=== PATIENT | male | born 1945 | race Caucasian/White ===

== ENCOUNTER 2016-10-29 05:39 | Observation (INO) | payer MEDICARE ==
[2016-10-29] MEDS ORDERED: Albuterol/Ipratropium NEB.SOL* Albuterol 2.5 MG/Ipratropium 0.5 MG 3 ML ONE (05:50)
[2016-10-29] MEDS ORDERED: Albuterol/Ipratropium NEB.SOL* Albuterol 2.5 MG/Ipratropium 0.5 MG 3 ML INH ONE (05:51)
[2016-10-29] MEDS ORDERED: methylPREDNISolone 125 MG* 2 ML VIAL IV ONE (06:01)
[2016-10-29 06:49] LABS: Hematocrit 51 % (42-52); Hemoglobin 17.1 g/dl (14.0-18.0); Mean Corpuscular HGB Conc 33 g/dl (31-36); Mean Corpuscular Hemoglobin 31 pg (27-31); Mean Corpuscular Volume 94 fL (80-94); Mean Platelet Volume 9 um3 (7.4-10.4); Red Blood Count 5.47 10^6/ul (4.0-5.4); Red Cell Distribution Width 17 % (10.5-15); White Blood Count 4.9 10^3/ul (3.5-10.8)
[2016-10-29 06:55] LABS: ALT 19 U/L (7-52); Albumin 3.8 g/dL (3.2-5.2); Alkaline Phosphatase 68 U/L (34-104); BUN/Creatinine Ratio 15.5 (8-20); Blood Urea Nitrogen 17 mg/dL (6-24); CO2 Carbon Dioxide 27 mmol/L (22-32); Calcium 9.5 mg/dL (8.6-10.3); Chloride 99 mmol/L (101-111); EGFR African American 85.1 (>60); EGFR Non-African American 66.2 (>60); Globulin 3.7 g/dL (2-4); Glucose 98 mg/dL (70-100); Sodium 132 mmol/L (133-145); Total Protein 7.5 g/dL (6.4-8.9)
--- NOTE | 2016-10-29 07:30 | ED ---
Sheri Malcolm Michael, scribed for Vince Campos MD on 10/29/16 at 0603 . Shortness of Breath - HPI Summary HPI Summary: 71 y/o male comes to the ED presenting with gradual SOB for the past 3 days. The pt reports that his SOB has worsened during the 3 days. He also smokes 2 packs of cigarettes per day and is not on home oxygen. The pt denies all other symptoms. - History of Current Complaint Chief Complaint: EDShortnessOfBreath Time Seen by Provider: 10/29/16 05:50 Hx Obtained From: Patient, Medical Records Onset/Duration: Gradual Onset, Lasting Days, Still Present Timing: Constant Current Severity: Moderate Dyspnea At: Rest Alleviating Factors: Nothing Associated Signs & Symptoms: Negative - Allergy/Home Medications Allergies/Adverse Reactions: Allergies Allergy/AdvReac Type Severity Reaction Status Date / Time Penicillins Allergy Severe Anaphylatic Verified 02/11/16 10:03 Shock Latex Allergy Intermediate Hives Verified 02/11/16 10:03 Wheat Extract Allergy Unknown Unknown Verified 02/11/16 10:03 Reaction Details PMH/Surg Hx/FS Hx/Imm Hx Endocrine/Hematology History: Reports: Hx Anticoagulant Therapy, Hx Diabetes - oral medication, diet Denies: Hx Blood Disorders, Hx Blood Transfusions, Hx Bone Marrow Disease, Hx Systemic Lupus Erythematosus, Hx Sickle Cell Disease, Hx Thyroid Disease, Hx Anemia, Hx Unexplained Bleeding, Other Endocrine/Hematological Disorders Cardiovascular History: Reports: Hx Angina - mi this year, Hx Angioplasty - stents in [place],, Hx Congestive Heart Failure, Hx Hypercholesterolemia, Hx Hypertension, Other Cardiovascular Problems/Disorders - SVT; Bypass x 2005 Denies: Hx Aneurysm, Hx Cardiac Arrest - positive for mi in past, Hx Cardiomegaly, Hx Congenital Heart Disease, Hx Coronary Artery Disease, Hx Deep Vein Thrombosis, Hx Embolism Respiratory History: Reports: Hx Asthma, Hx Chronic Obstructive Pulmonary Disease (COPD), Hx Sleep Apnea - HX CPAP/NO LONGER USES, Other Respiratory Problems/Disorders GI History: Reports: Hx Gastroesophageal Reflux Disease, Other GI Disorders - CONSTIPATION, PUD, gastric cristy/HERNIA ON RT SIDE Denies: Hx Ulcer History: Reports: Hx Benign Prostatic Hyperplasia, Other Problems/ Disorders - BPH Denies: Hx Renal Disease Musculoskeletal History: Reports: Other Musculoskeletal History - chain saw injury to right lower Sensory History: Reports: Hx Contacts or Glasses Denies: Hx Cataracts, Hx Eye Injury, Hx Eye Prosthesis, Hx Glaucoma, Hx Legally Blind, Hx Macular Degeneration, Hx Vision Problem, Hx Deafness, Hx Hearing Aid, Hx Hearing Problem, Other Sensory Impairments Opthamlomology History: Reports: Hx Contacts or Glasses Denies: Hx Cataracts, Hx Eye Injury, Hx Eye Prosthesis, Hx Glaucoma, Hx Legally Blind, Hx Macular Degeneration, Hx Vision Problem, Other Sensory Impairments Psychiatric History: Reports: Hx Depression - Surgical History Surgery Procedure, Year, and Place: CARDIAC STENTS, CABG 2004; Abdominal exploratory surgery at age 17; gastric cristy. grafting to right lower extremity after traumatic injury Hx Anesthesia Reactions: No Infectious Disease History: Denies: Hx Clostridium Difficile, Hx Hepatitis, Hx Human Immunodeficiency Virus (HIV), Hx of Known/Suspected MRSA, Hx Shingles, Hx Tuberculosis, Hx Known/ Suspected VRE, Hx Known/Suspected VRSA, History Other Infectious Disease, Traveled Outside the in Last 30 Days - Family History Known Family History: Positive: Cardiac Disease, Hypertension, Diabetes - Social History Occupation: Disabled Lives: With Family Alcohol Use: Rare Substance Use Type: Reports: None Smoking Status (MU): Light Every Day Tobacco Smoker Review of Systems Negative: Fever Positive: Shortness Of Breath All Other Systems Reviewed And Are Negative: Yes Physical Exam Triage Information Reviewed: Yes Vital Signs On Initial Exam: Initial Vitals Temp Pulse Resp BP Pulse Ox 97.9 F 64 16 156/80 96 10/29/16 05:46 10/29/16 05:46 10/29/16 05:46 10/29/16 05:46 10/29/16 05:46 Vital Signs Reviewed: Yes Appearance: Positive: Obese - modeate sob Skin: Positive: Warm Head/Face: Positive: Normal Head/Face Inspection Eyes: Positive: VAISHNAVI ENT: Positive: Hearing grossly normal Neck: Positive: Supple Respiratory/Lung Sounds: Positive: Decreased Breath Sounds, Wheezes - diffuse bilat exp Cardiovascular: Positive: RRR Abdomen Description: Positive: Nontender, Soft Bowel Sounds: Positive: Present Musculoskeletal: Positive: Strength/ROM Intact Neurological: Positive: Alert, Oriented to Person Place, Time, Normal Gait Psychiatric: Positive: Affect/Mood Appropriate Diagnostics - Vital Signs Vital Signs Temp Pulse Resp BP Pulse Ox 10/29/16 05:46 97.9 F 64 16 156/80 96 - Laboratory Lab Results: Lab Results 10/29/16 10/29/16 10/29/16 Range/Units 05:56 05:56 05:56 WBC 4.9 (3.5-10.8) 10^3/ul RBC 5.47 H (4.0-5.4) 10^6/ul Hgb 17.1 (14.0-18.0) g/dl Hct 51 (42-52) % MCV 94 (80-94) fL MCH 31 (27-31) pg MCHC 33 (31-36) g/dl RDW 17 H (10.5-15) % Plt Count 199 (150-450) 10^3/ul MPV 9 (7.4-10.4) um3 Neut % (Auto) 62.2 (38-83) % Lymph % (Auto) 22.1 L (25-47) % Lyman % (Auto) 11.9 H (1-9) % Eos % (Auto) 3.2 (0-6) % Baso % (Auto) 0.6 (0-2) % Absolute Neuts (auto) 3.1 (1.5-7.7) 10^3/ul Absolute Lymphs (auto) 1.1 (1.0-4.8) 10^3/ul Absolute Monos (auto) 0.6 (0-0.8) 10^3/ul Absolute Eos (auto) 0.2 (0-0.6) 10^3/ul Absolute Basos (auto) 0 (0-0.2) 10^3/ul Absolute Nucleated RBC 0 10^3/ul Nucleated RBC % 0.1 Sodium 132 L (133-145) mmol/L Potassium TNP Chloride 99 L (101-111) mmol/L Carbon Dioxide 27 (22-32) mmol/L Anion Gap TNP BUN 17 (6-24) mg/dL Creatinine 1.10 (0.67-1.17) mg/dL Est GFR ( Amer) 85.1 (>60) Est GFR (Non-Af Amer) 66.2 (>60) BUN/Creatinine Ratio 15.5 (8-20) Glucose 98 (70-100) mg/dL Lactic Acid 1.1 (0.5-2.0) mmol/L Calcium 9.5 (8.6-10.3) mg/dL Total Bilirubin 1.20 H (0.2-1.0) mg/dL AST TNP ALT 19 (7-52) U/L Alkaline Phosphatase 68 (34-104) U/L B-Natriuretic Peptide ( - 100) pg/mL Total Protein 7.5 (6.4-8.9) g/dL Albumin 3.8 (3.2-5.2) g/dL Globulin 3.7 (2-4) g/dL Albumin/Globulin Ratio 1.0 (1-3) 10/29/16 Range/Units 05:56 WBC (3.5-10.8) 10^3/ul RBC (4.0-5.4) 10^6/ul Hgb (14.0-18.0) g/dl Hct (42-52) % MCV (80-94) fL MCH (27-31) pg MCHC (31-36) g/dl RDW (10.5-15) % Plt Count (150-450) 10^3/ul MPV (7.4-10.4) um3 Neut % (Auto) (38-83) % Lymph % (Auto) (25-47) % Lyman % (Auto) (1-9) % Eos % (Auto) (0-6) % Baso % (Auto) (0-2) % Absolute Neuts (auto) (1.5-7.7) 10^3/ul Absolute Lymphs (auto) (1.0-4.8) 10^3/ul Absolute Monos (auto) (0-0.8) 10^3/ul Absolute Eos (auto) (0-0.6) 10^3/ul Absolute Basos (auto) (0-0.2) 10^3/ul Absolute Nucleated RBC 10^3/ul Nucleated RBC % Sodium (133-145) mmol/L Potassium Chloride (101-111) mmol/L Carbon Dioxide (22-32) mmol/L Anion Gap BUN (6-24) mg/dL Creatinine (0.67-1.17) mg/dL Est GFR ( Amer) (>60) Est GFR (Non-Af Amer) (>60) BUN/Creatinine Ratio (8-20) Glucose (70-100) mg/dL Lactic Acid (0.5-2.0) mmol/L Calcium (8.6-10.3) mg/dL Total Bilirubin (0.2-1.0) mg/dL AST ALT (7-52) U/L Alkaline Phosphatase (34-104) U/L B-Natriuretic Peptide 42 ( - 100) pg/mL Total Protein (6.4-8.9) g/dL Albumin (3.2-5.2) g/dL Globulin (2-4) g/dL Albumin/Globulin Ratio (1-3) Result Diagrams: 10/29/16 05:56 10/29/16 05:56 Lab Statement: Any lab studies that have been ordered have been reviewed, and results considered in the medical decision making process. - EKG EK EKG Rhythm: Sinus Rhythm Ectopy: PVCs EKG Interpretation: LBBB Re-Evaluation - Re-Evaluation First Eval Re-Evaluation Time: 07:29 - mildly improved but still sig sob, wheezes Course/Dx - Diagnoses Provider Diagnoses: COPD exacerbation - Physician Notifications Instructed by Provider To: Admit As Inpatient Discharge - Discharge Plan Condition: Fair Disposition: ADMITTED TO [facility] Referrals: Santy CORDERO SHIPPING CLERK/ADMIN,Elin [Primary Care Provider] - The documentation as recorded by the Sheri fernandes Michael accurately reflects the service I personally performed and the decisions made by , Vince Campos MD.
[2016-10-29] MEDS: Albuterol/Ipratropium NEB.SOL* Albuterol 2.5 MG/Ipratropium 0.5 MG 3 ML INH SCH ×6 (07:39→23:36)
[2016-10-29] MEDS ORDERED: Al Hydrox/Mg Hydrox/Simet LIQ* 30 ML UDC PO PRN (07:41)
[2016-10-29] MEDS ORDERED: Morphine INJ* 2 MG/ML 1 ML SYRINGE IV PRN (07:41)
[2016-10-29] MEDS ORDERED: Acetaminophen TAB* 325 MG PO PRN (07:41)
--- NOTE | 2016-10-29 07:42 | RAD ---
HISTORY: Shortness of breath COMPARISONS: April 20, 2016 VIEWS: 2: Frontal dual-energy and lateral views of the chest. FINDINGS: CARDIOMEDIASTINAL SILHOUETTE: The cardiomediastinal silhouette is normal. CASSIE: The cassie are normal. PLEURA: The costophrenic angles are sharp. No pleural abnormalities are noted. LUNG PARENCHYMA: There is hyperinflation with flattening of the diaphragm and expansion of the AP diameter of the chest. ABDOMEN: The upper abdomen is clear. There is no subphrenic gas. BONES AND SOFT TISSUES: Degenerative changes are noted along the spine. The patient is status post median sternotomy OTHER: None. IMPRESSION: HYPERINFLATION, CONSISTENT WITH COPD. NO ACTIVE CARDIOPULMONARY DISEASE.
[2016-10-29] MEDS ORDERED: NS 0.9% 1000 ML* 1,000 ML IV SCH (07:45)
[2016-10-29] MEDS ORDERED: Levothyroxine TAB* 25 MCG TAB PO SCH (08:00)
[2016-10-29 08:05] LABS: Troponin I 0.03 ng/mL (<0.04)
[2016-10-29] MEDS ORDERED: Dextrose 50% Syringe 50 ML* 25 GM/50 ML SYRINGE IV PUSH PRN (08:39)
[2016-10-29] MEDS: methylPREDNISolone 125 MG* 2 ML VIAL IV SCH ×2 (08:55→20:37)
[2016-10-29] MEDS ORDERED: Fluticasone-Salmeterol 250-50* DISKUS INH SCH (09:00)
[2016-10-29] MEDS ORDERED: Clopidogrel TAB* 75 MG PO SCH (09:00)
[2016-10-29] MEDS ORDERED: Metoprolol Succinate XL TAB* 25 MG PO SCH (09:00)
[2016-10-29] MEDS ORDERED: Furosemide TAB* 40 MG PO SCH (09:00)
[2016-10-29] MEDS: Azithromycin IV(*) 500 MG in NS 0.9% 250 ML* 250 ML IVPB SCH (10:15)
[2016-10-29] MEDS: Docusate CAP* 100 MG PO SCH ×2 (10:29→20:37)
[2016-10-29] MEDS: Aspirin EC TAB* 325 MG PO SCH (10:29)
[2016-10-29] MEDS: Furosemide TAB* 40 MG PO SCH (10:30)
--- NOTE | 2016-10-29 12:38 | HP ---
CC: WARD Tim HISTORY AND PHYSICAL: DATE OF ADMISSION: 10/29/16 PRIMARY CARE PROVIDER: WARD Machado CHIEF COMPLAINT: Shortness of breath. HISTORY OF PRESENT ILLNESS: The patient is a 71-year-old morbidly obese male with history of COPD, currently smoking 2 packs per day, who presents to the hospital complaining of shortness of breath for 2 days. The patient stated that he also has sinus congestion, pain in the paranasal area, and daily fevers. He is not oxygen- dependent COPD. He presented to the hospital and he was hypoxemic and in respiratory distress. He received several nebulizer treatments and right now, his oxygen saturation is 97% on 2 L of oxygen via nasal cannula. In addition to the above mentioned, the patient stated that he had been having chest pain and it is a pleuritic chest pain in the left lower chest on deeper inspiration and on cough. His cough has been productive of greenish sputum. The patient is going to be admitted with a diagnosis of COPD exacerbation. PAST MEDICAL HISTORY: 1. History of coronary artery disease. Most recent cardiac catheterization in March 2013, the patient had stent placed at [facility]. 2. Dyslipidemia. 3. Morbid obesity. 4. Diabetes. 5. Gastroesophageal reflux disease. 6. Hypothyroidism. 7. Non-oxygen dependent COPD. 8. History of gastric stapling for peptic ulcer disease. 9. Ventral hernia repair requiring mesh placement in the past with poor wound healing in the past. MEDICATIONS: At home include: 1. Imdur ER 30 mg daily. 2. Aspirin 325 mg daily. 3. Aldactone 25 mg daily. 4. Gabapentin 600 mg 3 times a day. 5. Levothyroxine 88 mcg daily. 6. Furosemide 80 mg daily. 7. Vitamin D2 weekly. 8. Lisinopril 2.5 mg daily. 9. Ferrous sulfate 325 mg 3 times a day. 10. Tradjenta 5 mg daily. 11. Atorvastatin 40 mg daily. 12. Ranitidine 150 mg daily. 13. Singulair 10 mg daily. 14. Metoprolol succinate 50 mg daily. 15. Opana 40 mg one tablet b.i.d. FAMILY HISTORY: Positive for father with history of [place] who committed suicide at the age of 76. Mother with history of dementia. SOCIAL HISTORY: The patient is on disability. He has history of smoking 2 to 3 packs per day for most of his life and he began when he was a teenager. Currently he smokes 2 packs per day. He denies any alcohol or drug use. His surrogate decision maker is his girlfriend, Maria Elena. REVIEW OF SYSTEMS: Please see history of present illness. The patient stated that his legs are usually swollen and they are more swollen when he is ambulatory for a longer time. They get better in the morning when he is just out of bed. Today, the patient states that his legs actually look "pretty good. " He has chronic orthopnea and he cannot sleep without having several pillows underneath his back. He stated that in the past couple of days, he needed more pillows underneath. He is not aware of any weight gain or loss. The patient states that his regular weight usually is 318 pounds. All the remaining 14 systems were reviewed with the patient and were otherwise negative. PHYSICAL EXAMINATION GENERAL: This is a very pleasant 71-year-old male morbidly obese. The patient is in no acute distress. Awake and oriented x3. VITAL SIGNS: Blood pressure of 178/87, heart rate of 67 and regular, respiratory rate 19, oxygen saturation 97% on 2 L oxygen via nasal cannula, temperature 97.9. HEENT: Head is atraumatic, normocephalic. Eyes: Pupils equal and reactive to light and accommodation. Oropharynx clear. Mucosa moist. NECK: Supple. No JVD. No bruits bilaterally. RESPIRATORY: Distant breath sounds bilaterally with wheezes in bilateral mid lungs. CARDIOVASCULAR: Regular rate and rhythm with 2/6 systolic ejection murmur noted on auscultation of the apex. ABDOMEN: Very protuberant, soft, nontender. Bowel sounds present in all 4 quadrants. The patient has a ventral hernia on the right side of his umbilicus with large area of chronic keloid-appearing scar. The area is not tender to palpation. EXTREMITIES: There is +1 pitting pedal edema. Pulses +2 bilaterally. There is no clubbing or cyanosis. NEUROLOGIC: Speech clear. Cranial nerves II through XII grossly intact. Motor strength is 5/5 bilaterally. SKIN: On evaluation of the skin, apart from the scar on the patient's abdomen as above mentioned, no ecchymotic areas or rashes noted. LABORATORY DATA: Sodium of 132, potassium was not able to be detected in the sample due to hemolysis, chloride of 99, carbon dioxide 27, BUN 17, creatinine 1.1. Liver function tests are unremarkable apart from mild elevation of bilirubin 1.2. Brain natriuretic peptide was 42. Troponin was 0.03. White blood cell count of 4.9, hemoglobin 17.1, hematocrit of 51, and platelets of 199. Portable chest x-ray, impression: "Hyperinflation consistent with COPD. No active cardiopulmonary disease." The patient's EKG shows left bundle branch block with heart rate of 67 beats per minute and PVCs. From prior EKGs from 2014, at that point, the patient had right bundle branch block with intraventricular conduction delay and LVH . ASSESSMENT AND PLAN: 1. For the patient's chronic obstructive pulmonary disease exacerbation, the patient is going to be placed on azithromycin and nebulizer treatments which are going to be scheduled, as well as Solu-Medrol. It appears that the patient does not have any inhalers at home, but in the past he had used them. Once he is off of his scheduled nebulizer treatments, we will place him on Advair or Dulera. At this point, I do not believe that the congestive heart failure is playing a role. I think that the patient is morbidly obese and due to that, he may have obesity hypoventilation problem and that is why he needs to sleep propped. His BNP is low. He does not appeared to be congested on his respiratory and lung evaluation. 2. In regards to his history of coronary artery disease, his troponin has been negative. His pain is occasional and pleuritic, most likely related to recent cough and respiratory distress. Nevertheless, we will observe him on telemetry monitored bed. 3. In regards to the patient's diabetes, the patient is going to be continued on diabetic diet and insulin sliding scale. His Tradjenta is going to be held while in the hospital. 4. For hypertension. The patient is going to be continued on his metoprolol. 5. For hypothyroidism, levothyroxine is going to be continued. 6. For chronic pain, Opana as well as gabapentin is going to be continued. 7. Once again, for his history of coronary artery disease, Imdur, aspirin, as well as beta blockers are going to be continued. 8. The patient's code status was discussed with the patient and the patient's girlfriend, Maria Elena. They agree with a full code. TIME SPENT: Approximately 63 minutes was spent on admission of this patient, more than half that time was spent [id number] with the patient during the interview and physical exam. [id number]/[facility] #: [id number] JAN
[2016-10-29] MEDS: Gabapentin CAP(*) 300 MG PO SCH ×2 (13:02→20:36)
[2016-10-29] MEDS: Levothyroxine TAB* 88 MCG TAB PO SCH (13:03)
[2016-10-29] MEDS: Ferrous Sulfate TAB* 325 MG PO SCH ×2 (13:03→20:37)
[2016-10-29] MEDS: Insulin LISPRO* 1 UNITS UNIT SUBCUT SCH ×3 (13:03→20:40)
[2016-10-29] MEDS: Heparin VIAL(*) 5000 UNITS/ML VIAL (FIVE THOUSAND) SUBCUT SCH ×2 (13:04→20:42)
[2016-10-29] MEDS ORDERED: Calcium Carbonate CHEW TAB* 500 MG (TUMS) PO PRN (13:11)
[2016-10-29] MEDS: Simethicone CHEW TAB* 80 MG PO SCH (15:08)
[2016-10-29] MEDS: Metoprolol Tartrate TAB* 50 mg PO SCH (20:37)
[2016-10-29] MEDS: OXYMORPHONE 10 MG PO SCH (20:43)
[2016-10-29] MEDS ORDERED: Atorvastatin* 40 MG TAB PO SCH (21:00)
[2016-10-30] MEDS: Albuterol/Ipratropium NEB.SOL* Albuterol 2.5 MG/Ipratropium 0.5 MG 3 ML INH SCH ×3 (04:41→12:20)
[2016-10-30] MEDS: Heparin VIAL(*) 5000 UNITS/ML VIAL (FIVE THOUSAND) SUBCUT SCH (05:50)
[2016-10-30] MEDS: Levothyroxine TAB* 88 MCG TAB PO SCH (05:51)
[2016-10-30 06:57] LABS: Hematocrit 47 % (42-52); Hemoglobin 15.4 g/dl (14.0-18.0); Mean Corpuscular HGB Conc 33 g/dl (31-36); Mean Corpuscular Hemoglobin 31 pg (27-31); Mean Corpuscular Volume 95 fL (80-94); Mean Platelet Volume 9 um3 (7.4-10.4); Red Blood Count 4.97 10^6/ul (4.0-5.4); Red Cell Distribution Width 16 % (10.5-15)
[2016-10-30 07:19] LABS: BUN/Creatinine Ratio 14.4 (8-20); Calcium 9.4 mg/dL (8.6-10.3); EGFR African American 84.2 (>60); EGFR Non-African American 65.5 (>60); Potassium 4.5 mmol/L (3.5-5.0)
[2016-10-30] MEDS: Aspirin EC TAB* 325 MG PO SCH (07:24)
[2016-10-30] MEDS ORDERED: Metoprolol Tartrate TAB* 50 mg PO SCH (07:24)
[2016-10-30] MEDS: Docusate CAP* 100 MG PO SCH (07:25)
[2016-10-30] MEDS: Metoprolol Tartrate TAB* 50 mg PO SCH (07:25)
[2016-10-30] MEDS: Furosemide TAB* 40 MG PO SCH (07:25)
[2016-10-30] MEDS: Simethicone CHEW TAB* 80 MG PO SCH ×2 (07:25→11:34)
[2016-10-30] MEDS: Gabapentin CAP(*) 300 MG PO SCH (07:26)
[2016-10-30] MEDS: Ferrous Sulfate TAB* 325 MG PO SCH (07:26)
[2016-10-30] MEDS: methylPREDNISolone 125 MG* 2 ML VIAL IV SCH (07:27)
[2016-10-30] MEDS: Azithromycin IV(*) 500 MG in NS 0.9% 250 ML* 250 ML IVPB SCH (07:28)
[2016-10-30] MEDS: OXYMORPHONE 10 MG PO SCH (07:34)
[2016-10-30] MEDS: Insulin LISPRO* 1 UNITS UNIT SUBCUT SCH ×2 (07:44→11:32)
[2016-10-30] MEDS ORDERED: Spironolactone TAB* 25 MG PO SCH ×2 (09:00)
[2016-10-30] MEDS ORDERED: Lisinopril TAB* 5 MG PO SCH ×2 (09:00)
[2016-10-30] MEDS ORDERED: Isosorbide Mononitrate ER TAB* 30 MG PO SCH ×2 (09:00)
[2016-10-30 09:08] VITALS: BP 113/64
--- NOTE | 2016-10-30 23:21 | DS ---
DISCHARGE SUMMARY: DATE OF ADMISSION: 10/29/16 DATE OF DISCHARGE: 10/30/16 PRIMARY CARE PROVIDER: WARD Tim DISCHARGE DIAGNOSES: 1. Acute maxillary sinusitis. 2. Chronic obstructive pulmonary disease exacerbation. SECONDARY DIAGNOSES: 1. History of coronary artery disease, cardiac catheterization in March 2013 with stent placement at [facility]. 2. Dyslipidemia. 3. Morbid obesity. 4. Diabetes. 5. Gastroesophageal reflux disease. 6. Hypothyroidism. 7. Non-oxygen dependent chronic obstructive pulmonary disease. 8. History of gastric stapling for peptic ulcer disease. 9. Ventral hernia repair requiring mesh placement in the past with poor wound healing in the past. MEDICATIONS AT DISCHARGE: Include: 1. Imdur ER 30 mg daily. 2. Aspirin 325 mg daily. 3. Aldactone 25 mg daily. 4. Gabapentin 600 mg 3 times a day. 5. Levothyroxine 88 mcg daily. 6. Furosemide 80 mg daily. 7. Vitamin D weekly. 8. Lisinopril 2.5 mg daily. 9. Ferrous sulfate 325 mg 3 times a day. 10. Tradjenta 5 mg daily. 11. Atorvastatin 40 mg daily. 12. Ranitidine 150 mg daily. 13. Singulair 10 mg daily. 14. Metoprolol succinate 50 mg daily. 15. Opana 40 mg 1 tablet b.i.d. New includes: Prednisone taper 20 mg tablet, the patient is to take 3 tablets daily for 2 days, then 2 tablets daily for 2 days, and 1 tablet daily for 2 days , then half a tablet daily for 2 days, then stop. Azithromycin 250 mg daily for a total of 4 days. HOSPITALIZATION COURSE: Pawel Craig is a 71-year-old male with history of obesity, smoking 2 packs per day currently as well as COPD, who presented complaining of shortness of breath, fevers for a couple of days, and sinus and nose congestion. The patient was placed on overnight observation with diagnosis of COPD exacerbation. For his sinusitis, he was treated with azithromycin. After 24-hour observation, the patient feels back to normal and he is ready to be discharged. His sinus congestion is improving. He was recommended not to smoke at discharge and he agrees with the recommendation. The patient recommended also to follow up with his primary care provider in approximately 4 to 7 days. LABORATORY DATA AND STUDIES PERFORMED DURING THE HOSPITAL STAY: Included, on , white blood cell count of 15.0, hemoglobin 15.4, hematocrit of 47, platelets of 162. Sodium was 135, potassium 4.5, chloride 103, carbon dioxide 25, BUN 16, creatinine 1.11. Portable chest x-ray obtained on admission, impression: "Hyperinflation appeared consistent with COPD. No active cardiopulmonary disease." PHYSICAL EXAMINATION: At the time of discharge, blood pressure of 113/64, heart rate of 60 and regular, respiratory rate 18, oxygen saturation 95% on room air, temperature 97.3. General: The patient is a very pleasant 71-year- old obese male, who is in no acute distress, alert and oriented x3. HEENT: Head atraumatic, normocephalic. Eyes: Pupils equal and reactive to light and accommodation. Pharynx clear. Mucosa moist. Neck: Supple. No JVD. No bruits bilaterally. Cardiovascular: Regular rate and rhythm. No murmur. Respiratory: Distant breath sounds bilaterally. No wheezes. Abdomen: Protuberant, obese, soft, nontender. Bowel sounds present in all 4 quadrants. Large scar on the right side of the umbilicus, after ventral hernia repair, is present. Extremities: There is trace bilateral pedal edema. Pulses are 2+ bilaterally. There is no clubbing or cyanosis. Neuro Evaluation: Speech is clear. Cranial nerves II through XII are grossly intact. Motor strength is 5/ 5 bilaterally. Please note that this is a short summary of the patient's hospital stay. Please refer to further medical records for details. CC: WARD Tim* [id number]/DEV #: [id number] [facility] MEM[facility]IAL HOSPITALJuma
== END 2016-10-30 12:40 | disposition home or self-care (01) ==
LOC: ED 05:39 → MEDTELE 07:41
PROVIDERS: ADMIT Internal Medicine; ATTEND Internal Medicine
DX: J44.1 Chronic obstructive pulmonary disease with (acute) exacerbation (principal); F17.210 Nicotine dependence, cigarettes, uncomplicated; E11.8 Type 2 diabetes mellitus with unspecified complications; Z79.84 Long term (current) use of oral hypoglycemic drugs; I25.2 Old myocardial infarction; I25.119 Atherosclerotic heart disease of native coronary artery with unspecified angina pectoris; Z95.5 Presence of coronary angioplasty implant and graft; Z95.1 Presence of aortocoronary bypass graft; I45.2 Bifascicular block; I49.3 Ventricular premature depolarization; I10 Essential (primary) hypertension; E03.9 Hypothyroidism, unspecified; E78.5 Hyperlipidemia, unspecified; K21.9 Gastro-esophageal reflux disease without esophagitis; E66.01 Morbid (severe) obesity due to excess calories; G89.29 Other chronic pain; Z79.899 Other long term (current) drug therapy; J01.00 Acute maxillary sinusitis, unspecified; Z88.0 Allergy status to penicillin
CPT/HCPCS: 36415; 71020; 80048; 80053; 83605; 83880; 84484; 85025; 93005; 94640; 94760; 96365; 96366; 96372; 96375; 96376; 99283; 99406; A9270-GY; G0378; J0456; J1644; J2270; J2930

== ENCOUNTER 2017-01-28 12:03 | Observation (INO) | payer MEDICARE ==
[2017-01-28] MEDS ORDERED: Aspirin Low Dose CHEW TAB* 81 MG PO ONE (12:24)
[2017-01-28] MEDS ORDERED: Albuterol/Ipratropium NEB.SOL* Albuterol 2.5 MG/Ipratropium 0.5 MG 3 ML INH ONE (12:25)
[2017-01-28] MEDS ORDERED: methylPREDNISolone 125 MG* 2 ML VIAL IV ONE (12:28)
[2017-01-28 12:47] LABS: Hematocrit 54 % (42-52); Hemoglobin 17.6 g/dl (14.0-18.0); Mean Corpuscular HGB Conc 33 g/dl (31-36); Mean Corpuscular Hemoglobin 32 pg (27-31); Mean Corpuscular Volume 99 fL (80-94); Mean Platelet Volume 9 um3 (7.4-10.4); Red Blood Count 5.48 10^6/ul (4.0-5.4); Red Cell Distribution Width 15 % (10.5-15); White Blood Count 6.4 10^3/ul (3.5-10.8)
[2017-01-28 13:03] LABS: Troponin I 0.01 ng/mL (<0.04)
[2017-01-28 13:07] LABS: Albumin 3.7 g/dL (3.2-5.2); BUN/Creatinine Ratio 11.7 (8-20); Calcium 9.1 mg/dL (8.6-10.3); EGFR African American 66.1 (>60); EGFR Non-African American 51.4 (>60); Globulin 2.7 g/dL (2-4); Potassium 4.2 mmol/L (3.5-5.0); Total Protein 6.4 g/dL (6.4-8.9)
--- NOTE | 2017-01-28 13:11 | RAD ---
INDICATION: Short of breath COMPARISON: October 29, 2016 TECHNIQUE: An AP portable view obtained at 1247 hours is submitted. FINDINGS: Bones/Soft Tissues: There are no acute bony findings. There is sternotomy. Cardiomediastinal: The cardiomediastinal silhouette is normal. Lungs: There are no infiltrates. Pleura: There are no pleural effusions. Other: None IMPRESSION: NO ACTIVE DISEASE.
--- NOTE | 2017-01-28 14:00 | ED ---
Rivera Malcolm Rebecca, scribed for Ina Shah MD on 01/28/17 at 1244 . HPI Chest Pain - HPI Summary HPI Summary: Pt is a 71 y/o M who presents to ED c/o left anterior CP without radiation. Sx began this morning at 0800 and are currently severe, ranked 8/10. Took 1 NTG TALLOW PUMPER , unsure if it helped. Sx aggravated and alleviated by nothing. Additionally c/ o SOB, cough, fever and fatigue. Pt was D/C from [facility] in October for COPD exacerbation. PMHx CHF, COPD. Last used his inhaler a few days ago. SHx current smoker. - History of Current Complaint Chief Complaint: EDChestPainROMI Hx Obtained From: Patient Onset/Duration: Started Hours Ago, Still Present Time of Onset: 08:00 Current Severity: Severe Pain Intensity: 8 Pain Scale Used: 0-10 Numeric Chest Pain Location: Left Anterior Chest Pain Radiates: No Aggravating Factor(s): Nothing Alleviating Factor(s): Nothing Associated Signs and Symptoms: Positive: Shortness of Breath, Fever, Cough, Other: - Fatigue - Additional Pertinent History Primary Care Physician: EDUARDO - Allergy/Home Medications Allergies/Adverse Reactions: Allergies Allergy/AdvReac Type Severity Reaction Status Date / Time Penicillins Allergy Severe Anaphylatic Verified 10/29/16 07:39 Shock Latex Allergy Intermediate Hives Verified 10/29/16 07:39 Wheat Extract Allergy Unknown Unknown Verified 10/29/16 07:39 Reaction Details Home Medications: Home Medications Aspirin TAB* [Aspirin 325 MG TAB*] 325 mg PO DAILY 01/28/17 [History Confirmed 01/28/17] Docusate CAP* [Colace Cap*] 100 mg PO BID 01/28/17 [History Confirmed 01/28/17] Ergocalciferol CAP* [Drisdol CAP*] 50,000 units PO WEEKLY 01/28/17 [History Confirmed 01/28/17] Isosorbide Mononitrate ER TAB* [Imdur ER TAB*] 30 mg PO DAILY 01/28/17 [History Confirmed 01/28/17] Levothyroxine TAB* [Synthroid TAB*] 88 mcg PO DAILY 01/28/17 [History Confirmed 01/28/17] Linagliptin (NF) [Tradjenta (NF)] 5 mg PO DAILY 01/28/17 [History Confirmed 05/06] Metoprolol Succinate XL TAB* [Toprol XL TAB*] 50 mg PO BID 01/28/17 [History Confirmed 01/28/17] Oxymorphone HCl [Opana ER (Crush Resistant] 40 mg PO BID 01/28/17 [History Confirmed 01/28/17] Spironolactone TAB* [Aldactone TAB*] 25 mg PO DAILY 01/28/17 [History Confirmed 01/28/17] PMH/Surg Hx/FS Hx/Imm Hx Endocrine/Hematology History: Reports: Hx Anticoagulant Therapy, Hx Diabetes - oral medication, diet Denies: Hx Blood Disorders, Hx Blood Transfusions, Hx Bone Marrow Disease, Hx Systemic Lupus Erythematosus, Hx Sickle Cell Disease, Hx Thyroid Disease, Hx Anemia, Hx Unexplained Bleeding, Other Endocrine/Hematological Disorders Cardiovascular History: Reports: Hx Angina - mi this year, Hx Angioplasty - stents in [place],, Hx Congestive Heart Failure, Hx Hypercholesterolemia, Hx Hypertension, Other Cardiovascular Problems/Disorders - SVT; Bypass x 4 2005 Denies: Hx Aneurysm, Hx Cardiac Arrest - positive for mi in past, Hx Cardiomegaly, Hx Congenital Heart Disease, Hx Coronary Artery Disease, Hx Deep Vein Thrombosis, Hx Embolism Respiratory History: Reports: Hx Asthma, Hx Chronic Obstructive Pulmonary Disease (COPD), Hx Sleep Apnea - HX CPAP/NO LONGER USES, Other Respiratory Problems/Disorders GI History: Reports: Hx Gastroesophageal Reflux Disease, Other GI Disorders - CONSTIPATION, PUD, gastric cristy/HERNIA ON RT SIDE Denies: Hx Ulcer History: Reports: Hx Benign Prostatic Hyperplasia, Other Problems/ Disorders - BPH Denies: Hx Renal Disease Musculoskeletal History: Reports: Other Musculoskeletal History - chain saw injury to right lower Sensory History: Reports: Hx Contacts or Glasses Denies: Hx Cataracts, Hx Eye Injury, Hx Eye Prosthesis, Hx Glaucoma, Hx Legally Blind, Hx Macular Degeneration, Hx Vision Problem, Hx Deafness, Hx Hearing Aid, Hx Hearing Problem, Other Sensory Impairments Opthamlomology History: Reports: Hx Contacts or Glasses Denies: Hx Cataracts, Hx Eye Injury, Hx Eye Prosthesis, Hx Glaucoma, Hx Legally Blind, Hx Macular Degeneration, Hx Vision Problem, Other Sensory Impairments Psychiatric History: Reports: Hx Depression - Surgical History Surgery Procedure, Year, and Place: CARDIAC STENTS, CABG 2004; Abdominal exploratory surgery at age 17; gastric cristy. grafting to right lower extremity after traumatic injury Hx Anesthesia Reactions: No Infectious Disease History: Yes Infectious Disease History: Denies: Hx Clostridium Difficile, Hx Hepatitis, Hx Human Immunodeficiency Virus (HIV), Hx of Known/Suspected MRSA, Hx Shingles, Hx Tuberculosis, Hx Known/ Suspected VRE, Hx Known/Suspected VRSA, History Other Infectious Disease, Traveled Outside the [place] in Last 30 Days - Family History Known Family History: Positive: Cardiac Disease, Hypertension, Diabetes - Social History Alcohol Use: Rare Substance Use Type: Reports: None Hx Tobacco Use: Yes Smoking Status (MU): Heavy Every Day Tobacco Smoker Type: Cigarettes Review of Systems Positive: Fever, Fatigue Positive: Chest Pain Positive: Shortness Of Breath, Cough All Other Systems Reviewed And Are Negative: Yes Physical Exam - Summary Physical Exam Summary: General: Well appearing, no pain distress, falling asleep during exam Skin: Warm, Skin Color Reflects Adequate Perfusion, Dry Eyes: EOMI, VAISHNAVI ENT: Pharynx normal, TMs normal Neck: Supple, nontender Respiratory: CTA, decreased breath sounds bilaterally, no rhonchi, no wheezes, no rales Cardiovascular: RRR, no murmur, no rub, no gallop Abdomen: Soft, nontender, Non-distended, no guarding, no rebound Bowel: Present Musculoskeletal: CHU, 2+ edema with some brawny erythema on the R leg with a scar over it. Neuro: Sensory/motor intact, A&Ox3, CN intact 2-12 Psych: Affect/mood appropriate Triage Information Reviewed: Yes Vital Signs On Initial Exam: Initial Vitals Temp Pulse Resp BP Pulse Ox 98 F 70 20 111/72 94 01/28/17 12:14 01/28/17 12:14 01/28/17 12:14 01/28/17 12:14 01/28/17 12:14 Vital Signs Reviewed: Yes - Bowen Coma Scale Coma Scale Total: 15 Diagnostics - Vital Signs Vital Signs Temp Pulse Resp BP Pulse Ox 01/28/17 12:36 94 01/28/17 12:14 98 F 68 20 111/72 94 - Laboratory Lab Results: Lab Results 01/28/17 01/28/17 01/28/17 Range/Units 12:32 12:32 12:32 WBC 6.4 (3.5-10.8) 10^3/ul RBC 5.48 H (4.0-5.4) 10^6/ul Hgb 17.6 (14.0-18.0) g/dl Hct 54 H (42-52) % MCV 99 H (80-94) fL MCH 32 H (27-31) pg MCHC 33 (31-36) g/dl RDW 15 (10.5-15) % Plt Count 163 (150-450) 10^3/ul MPV 9 (7.4-10.4) um3 Neut % (Auto) 73.9 (38-83) % Lymph % (Auto) 13.9 L (25-47) % [place] % (Auto) 8.1 (1-9) % Eos % (Auto) 3.5 (0-6) % Baso % (Auto) 0.6 (0-2) % Absolute Neuts (auto) 4.7 (1.5-7.7) 10^3/ul Absolute Lymphs (auto) 0.9 L (1.0-4.8) 10^3/ul Absolute Monos (auto) 0.5 (0-0.8) 10^3/ul Absolute Eos (auto) 0.2 (0-0.6) 10^3/ul Absolute Basos (auto) 0 (0-0.2) 10^3/ul Absolute Nucleated RBC 0.01 10^3/ul Nucleated RBC % 0.1 INR (Anticoag Therapy) 0.87 L (0.89-1.11) Sodium 134 (133-145) mmol/L Potassium 4.2 (3.5-5.0) mmol/L Chloride 98 L (101-111) mmol/L Carbon Dioxide 32 (22-32) mmol/L Anion Gap 4 (2-11) mmol/L BUN 16 (6-24) mg/dL Creatinine 1.37 H (0.67-1.17) mg/dL Est GFR ( Amer) 66.1 (>60) Est GFR (Non-Af Amer) 51.4 (>60) BUN/Creatinine Ratio 11.7 (8-20) Glucose 105 H (70-100) mg/dL Lactic Acid (0.5-2.0) mmol/L Calcium 9.1 (8.6-10.3) mg/dL Total Bilirubin 1.00 (0.2-1.0) mg/dL AST 19 (13-39) U/L ALT 24 (7-52) U/L Alkaline Phosphatase 77 (34-104) U/L Troponin I 0.01 (<0.04) ng/mL B-Natriuretic Peptide ( - 100) pg/mL Total Protein 6.4 (6.4-8.9) g/dL Albumin 3.7 (3.2-5.2) g/dL Globulin 2.7 (2-4) g/dL Albumin/Globulin Ratio 1.4 (1-3) 01/28/17 01/28/17 Range/Units 12:32 12:32 WBC (3.5-10.8) 10^3/ul RBC (4.0-5.4) 10^6/ul Hgb (14.0-18.0) g/dl Hct (42-52) % MCV (80-94) fL MCH (27-31) pg MCHC (31-36) g/dl RDW (10.5-15) % Plt Count (150-450) 10^3/ul MPV (7.4-10.4) um3 Neut % (Auto) (38-83) % Lymph % (Auto) (25-47) % [place] % (Auto) (1-9) % Eos % (Auto) (0-6) % Baso % (Auto) (0-2) % Absolute Neuts (auto) (1.5-7.7) 10^3/ul Absolute Lymphs (auto) (1.0-4.8) 10^3/ul Absolute Monos (auto) (0-0.8) 10^3/ul Absolute Eos (auto) (0-0.6) 10^3/ul Absolute Basos (auto) (0-0.2) 10^3/ul Absolute Nucleated RBC 10^3/ul Nucleated RBC % INR (Anticoag Therapy) (0.89-1.11) Sodium (133-145) mmol/L Potassium (3.5-5.0) mmol/L Chloride (101-111) mmol/L Carbon Dioxide (22-32) mmol/L Anion Gap (2-11) mmol/L BUN (6-24) mg/dL Creatinine (0.67-1.17) mg/dL Est GFR ( Amer) (>60) Est GFR (Non-Af Amer) (>60) BUN/Creatinine Ratio (8-20) Glucose (70-100) mg/dL Lactic Acid 1.4 (0.5-2.0) mmol/L Calcium (8.6-10.3) mg/dL Total Bilirubin (0.2-1.0) mg/dL AST (13-39) U/L ALT (7-52) U/L Alkaline Phosphatase (34-104) U/L Troponin I (<0.04) ng/mL B-Natriuretic Peptide 47 ( - 100) pg/mL Total Protein (6.4-8.9) g/dL Albumin (3.2-5.2) g/dL Globulin (2-4) g/dL Albumin/Globulin Ratio (1-3) Result Diagrams: 01/28/17 12:32 01/28/17 12:32 Lab Statement: Any lab studies that have been ordered have been reviewed, and results considered in the medical decision making process. - Radiology CXR Xray Interpretation: No Acute Changes - NO ACTIVE DISEASE. Radiology Interpretation Completed By: Radiologist - EKG 1213 Cardiac Rate: NL - 66 bpm EKG Interpretation: LBBB EKG Comparison: No Significant Change - No change from EKG on 10/29/2016 Chest Pain Course/Dx - Course Course Of Treatment: 71 yo male with c/o cp and sob with normal labs copd treatment started pt accepted for admission by Dr. Santana - Diagnoses Provider Diagnoses: COPD exacerbation, Chest pain - Provider Notifications Discussed Care Of Patient With: Mark Santana Time Discussed With Above Provider: 13:50 Instructed by Provider To: Other - Accepts pt for admission Discharge - Discharge Plan Condition: Stable Disposition: ADMITTED TO [facility] Referrals: Santy CORDERO PHYSICIAN NON INVASIVE CARDIOLOGIST,Elin [Primary Care Provider] - The documentation as recorded by the Rivera fernandes Rebecca accurately reflects the service I personally performed and the decisions made by me, Ina Shah MD.
[2017-01-28 14:08] LABS: PCO2 Arterial 43 mmHg (35-45)
[2017-01-28] MEDS ORDERED: oxyCODONE/Acetamin 5/325 MG* TAB PO PRN (14:27)
[2017-01-28] MEDS ORDERED: Ondansetron INJ* 2 MG/ML VIAL IV PRN (14:31)
[2017-01-28] MEDS ORDERED: Dextrose 50% Syringe 50 ML* 25 GM/50 ML SYRINGE IV PUSH PRN (14:35)
[2017-01-28] MEDS: oxyCODONE TAB* 5 MG TAB PO PRN (16:49)
[2017-01-28] MEDS: Oxymetazoline 0.05% NASAL SPR* 15 ML BTL BOTH NARES SCH ×2 (17:19→21:14)
[2017-01-28] MEDS: Insulin LISPRO* 1 UNITS UNIT SUBCUT SCH ×2 (17:35→21:14)
[2017-01-28] MEDS: Mometasone/Formoter 200/5 MDI INH SCH (19:32)
--- NOTE | 2017-01-28 20:14 | HP ---
ADMISSION HISTORY AND PHYSICAL: DATE OF ADMISSION: 01/28/17 PRIMARY CARE PROVIDER: WARD Tim HEALTHCARE PROXY: His girlfriend, Alena. CODE STATUS: DNR, discussed with the patient. SOURCE OF INFORMATION: History was obtained from interview with the patient, discussion with the ER physician, review of past medical records. Discussion with the patient is poor; the patient is a very poor historian, does not want to discuss symptoms or details much at all. CHIEF COMPLAINT: "Don't feel good." HISTORY OF PRESENT ILLNESS: The patient is a 71-year-old man with past medical history of CAD, status post CABG; morbid obesity; dyslipidemia; diabetes; COPD, not on oxygen at home. In usual state of health until approximately 4 days prior, started to "not feel good." Notes he has chest pain daily and today he woke up, he had a chest pain that was similar, took nitro, which improved the chest pain, however, developed shortness of breath after. Notes over the last several days has had increasing cough and nasal congestion, but today presented to the emergency room because of the increasing shortness of breath as well as generalized malaise. He denies any fevers, chills, or night sweats. He endorsed some nausea and had emesis during the course of the interview in the setting of a coughing paroxysm. The patient describes his pain has been daily, has a burning, although cannot say if it is radiating, where it is located, its intensity, other signs or symptoms associated. The patient does note sinus congestion. PAST MEDICAL HISTORY: 1. CAD, last cardiac cath per records March 2013 with stent placed in [facility]. 2. Hyperlipidemia. 3. Morbid obesity. 4. Type 2 diabetes. 5. GERD. 6. Hypothyroidism. 7. COPD. 8. Active tobacco use. 9. Gastric stapling for peptic ulcer disease. 10. Ventral hernia repair with mesh. MEDICATIONS: 1. Spironolactone 25 mg daily. 2. Zantac 150 mg daily. 3. Oxymorphone 40 mg twice daily confirmed with I-STOP. 4. Singulair 10 mg daily. 5. Metoprolol succinate 50 mg twice daily. 6. Lisinopril 2.5 mg daily. 7. Tradjenta 5 mg daily. 8. Synthroid 88 mcg daily. 9. Isosorbide mononitrate 30 mg daily. 10. Gabapentin 600 mg 3 times a day. 11. Lasix 80 mg daily. 12. 325 mg 3 times daily. 13. Ergocalciferol 5000 International Units weekly. 14. Docusate 100 mg twice daily. 15. Lipitor 40 mg at bedtime. 16. Aspirin 325 mg daily. ALLERGIES: To PENICILLIN, LASIX, and EXTRACT. FAMILY HISTORY: Father with PA at age 76. Mother with dementia. SOCIAL HISTORY: Currently on disability. Smokes 2 packs per day. Denies alcohol. Lives with his girlfriend and his daughter. Walks with a cane. REVIEW OF SYSTEMS: As per HPI, otherwise the patient will not contribute. PHYSICAL EXAMINATION GENERAL: Sitting on the bed, obese gentleman, in no apparent distress, quite taciturn, able to talk complete sentences, however, reports feeling short of breath and does not contribute much to the physical exam. VITAL SIGNS: When seen by this author, blood pressure 107/61, heart rate 66, respiratory rate is 19, 93% on room air, T-max in the emergency room is 98 degrees Fahrenheit. HEENT: Oropharynx is clear. He has dry mucous membranes. Sclerae are anicteric. NECK: He has a non-elevated JVD. There is no cervical or supraclavicular lymphadenopathy. LUNGS: He has decreased breath sounds in his bases with faint end-expiratory wheezing, most probably in the apex. HEART: He has a regular rate and rhythm. He has a faint murmur in his right upper sternal border, difficult to appreciate with distant heart sounds. ABDOMEN: Obese, soft, nontender, nondistended. EXTREMITIES: Warm and well perfused. He has 2+ lower extremity pitting edema. NEURO: Cranial nerves II through XII are intact. SKIN: He has area of erythema in his pretibial region extending around a healing ulcer. He is alert and oriented x3. DIAGNOSTIC STUDIES/LAB DATA: Pertinent laboratory data reviewed. BUN 16, creatinine 1.37. BNP is 47. Troponin I is 0.01. White blood cell count is 6.4 , hemoglobin 17.6. INR 0.87. Data reviewed. Chest x-ray, impression: No active cardiopulmonary disease. EKG: Normal sinus rhythm, ventricular rate is 66, right bundle branch block, left axis. No ST or T-wave change. ASSESSMENT AND PLAN: This is a 71-year-old man with past medical history of coronary artery disease, diabetes, chronic obstructive pulmonary disease, active tobacco use 2 packs per day, presenting to the hospital with shortness of breath as well as chest pain, difficult to describe. 1. Shortness of breath. Differential includes chronic obstructive pulmonary disease, congestive heart failure, acute coronary syndrome, pulmonary embolism. The patient's ABG indicates acute hypoxia without evidence of hypercapnia. His pulmonary exam would suggest chronic obstructive pulmonary disease in absence of BNP elevation, troponin elevation, and normal EKG would rule against acute coronary syndrome. Absence of pulmonary vascular overload would argue against congestive heart failure as well as a normal BNP. The patient received 125 mg methylprednisolone in the emergency room. Continue nebulizers for suspected chronic obstructive pulmonary disease exacerbation in the setting of increasing cough over the last week as well as sinus congestion. We will add on D-dimer as we can rule out pulmonary embolism in this patient's circumstance and we will check CTA should he meet clinical threshold for testing. Check transthoracic echocardiogram to evaluate for worsening heart function. 2. Type [address] insulin sliding scale. Hold Tradjenta. 3. Chronic pain. Place on oxycodone SR 10 mg twice daily with breakthrough 5 mg oxycodone. 4. History of coronary artery disease. Continue home medications including aspirin, metoprolol, Lipitor. 5. DVT prophylaxis. Heparin subcu. 6. Code status. DNR, discussed with the patient. MOLST filled out and placed in the chart. [id number]/[facility] #: [id number] JAN
[2017-01-28] MEDS ORDERED: Atorvastatin* 40 MG TAB PO SCH (21:00)
[2017-01-28] MEDS: oxyCODONE SR TAB(*) 10 MG TAB.SR PO SCH (21:12)
[2017-01-28] MEDS: Docusate CAP* 100 MG PO SCH (21:13)
[2017-01-28] MEDS: Metoprolol Succinate XL TAB* 50 MG PO SCH (21:13)
[2017-01-28] MEDS: Ferrous Sulfate TAB* 325 MG PO SCH (21:13)
[2017-01-28] MEDS: Heparin VIAL(*) 5000 UNITS/ML VIAL (FIVE THOUSAND) SUBCUT SCH (21:13)
[2017-01-28] MEDS: Gabapentin CAP(*) 300 MG PO SCH (21:13)
[2017-01-29 04:55] LABS: Hematocrit 53 % (42-52); Hemoglobin 17.4 g/dl (14.0-18.0); Mean Corpuscular HGB Conc 33 g/dl (31-36); Mean Corpuscular Hemoglobin 32 pg (27-31); Mean Corpuscular Volume 98 fL (80-94); Mean Platelet Volume 9 um3 (7.4-10.4); Red Blood Count 5.42 10^6/ul (4.0-5.4); Red Cell Distribution Width 15 % (10.5-15); White Blood Count 10.3 10^3/ul (3.5-10.8)
[2017-01-29] MEDS: Heparin VIAL(*) 5000 UNITS/ML VIAL (FIVE THOUSAND) SUBCUT SCH ×2 (05:01→12:52)
[2017-01-29] MEDS: oxyCODONE TAB* 5 MG TAB PO PRN ×2 (05:54→11:12)
[2017-01-29] MEDS ORDERED: Levothyroxine TAB* 88 MCG TAB PO SCH (06:00)
[2017-01-29 06:36] LABS: BUN/Creatinine Ratio 17.1 (8-20); Blood Urea Nitrogen 18 mg/dL (6-24); CO2 Carbon Dioxide 24 mmol/L (22-32); Calcium 8.9 mg/dL (8.6-10.3); Chloride 101 mmol/L (101-111); EGFR African American 89.8 (>60); EGFR Non-African American 69.8 (>60); Glucose 134 mg/dL (70-100); Sodium 132 mmol/L (133-145)
[2017-01-29 06:38] LABS: Anion Gap 7 mmol/L (2-11)
[2017-01-29] MEDS: Insulin LISPRO* 1 UNITS UNIT SUBCUT SCH ×2 (07:53→11:54)
[2017-01-29] MEDS: Ferrous Sulfate TAB* 325 MG PO SCH ×2 (08:18→12:52)
[2017-01-29] MEDS: Metoprolol Succinate XL TAB* 50 MG PO SCH (08:19)
[2017-01-29] MEDS: Docusate CAP* 100 MG PO SCH (08:19)
[2017-01-29] MEDS: oxyCODONE SR TAB(*) 10 MG TAB.SR PO SCH (08:19)
[2017-01-29] MEDS: Gabapentin CAP(*) 300 MG PO SCH ×2 (08:19→12:52)
[2017-01-29] MEDS: Oxymetazoline 0.05% NASAL SPR* 15 ML BTL BOTH NARES SCH (08:21)
[2017-01-29] MEDS: Mometasone/Formoter 200/5 MDI INH SCH (08:48)
[2017-01-29] MEDS ORDERED: methylPREDNISolone SOD 40 MG* 1 ML VIAL IV SCH (09:00)
[2017-01-29] MEDS ORDERED: Spiriva Inhaler DEVICE* 1 EACH DEVICE INH ONE (09:00)
[2017-01-29] MEDS ORDERED: Montelukast Sodium TAB* 10 MG PO SCH (09:00)
[2017-01-29] MEDS ORDERED: Aspirin TAB* 325 MG PO SCH (09:00)
[2017-01-29] MEDS ORDERED: Isosorbide Mononitrate ER TAB* 30 MG PO SCH (09:00)
[2017-01-29] MEDS ORDERED: Tiotropium CAP.INH* CAP.INH/18 MCG INH SCH (09:00)
[2017-01-29] MEDS ORDERED: Famotidine TAB* 20 MG PO SCH (09:00)
[2017-01-29] MEDS ORDERED: Furosemide TAB* 40 MG PO SCH (09:00)
[2017-01-29] MEDS ORDERED: Spironolactone TAB* 25 MG PO SCH (09:00)
[2017-01-29 11:51] VITALS: BP 97/62
--- NOTE | 2017-01-30 04:36 | DS ---
CC: WARD Tim * DISCHARGE SUMMARY: DATE OF ADMISSION: 01/28/17 DATE OF DISCHARGE: 01/29/17 PRIMARY CARE PROVIDER: WARD Tim, in the [facility]. DISCHARGING PROVIDER: ERAN Douglass SUPERVISING PHYSICIAN: Dr. Bill Kerr * (DICTATED BY ERAN DOUGLASS) PRIMARY DISCHARGE DIAGNOSES: 1. Chronic obstructive pulmonary disease exacerbation. 2. Acute on chronic sinus congestion. SECONDARY DISCHARGE DIAGNOSES: 1. Coronary artery disease without evidence of acute coronary syndrome. 2. Obesity with a BMI of 36. 3. Ekx-ganhtrd-bncebrtrg diabetes. 4. Hyperlipidemia. 5. Continued tobacco use. 6. Hypothyroidism. DISCHARGE MEDICATIONS: 1. Combivent 1 puff inhaled q.6 hours as needed for shortness of breath. 2. Aspirin 325 mg p.o. daily. 3. Atorvastatin 40 mg p.o. at bedtime. 4. Docusate 100 mg p.o. b.i.d. 5. Ergocalciferol 50,000 units p.o. weekly. 6. Ferrous sulfate 325 mg p.o. t.i.d. 7. Advair 250/50 one puff inhaled twice daily. 8. Lasix 80 mg p.o. daily. 9. Gabapentin 600 mg p.o. t.i.d. 10. Ipratropium nasal spray 0.03% with instructions for 1 spray in each nostril twice daily. 11. Isosorbide mononitrate 30 mg p.o. daily. 12. Levothyroxine 88 mcg p.o. daily. 13. Tradjenta 5 mg p.o. daily. 14. Lisinopril 2.5 mg p.o. daily. 15. Loratadine 10 mg p.o. daily. 16. Metoprolol succinate 50 mg p.o. twice daily. 17. Nasonex 1 spray in each nostril twice daily. 18. Singulair 10 mg p.o. daily. 19. Opana 40 mg p.o. twice daily. 20. Zantac 150 mg p.o. daily. 21. Spironolactone 25 mg p.o. daily. 22. Spiriva 1 capsule inhaled daily. 23. Prednisone tapering on a dose 40 mg x3 days, followed by 20 mg x3 days. Medication changes: 1. Start ipratropium nasal spray. 2. Start Spiriva. 3. Start prednisone taper as listed above. HOSPITAL IMAGING: Chest x-ray is unremarkable with no evidence of acute cardiopulmonary process. HOSPITAL COURSE: This is a 71-year-old gentleman with multiple medical problems including known coronary disease, obesity, hypertension, hyperlipidemia , diabetes, COPD, and hypothyroidism, who presented with a chief complaint of simply not feeling well. The patient had described some increasing shortness of breath that was difficult to discern whether this was due to severe nasal congestion or true dyspnea. ABG in the emergency department, however, demonstrated hypoxia with a PO2 of 55 and the patient was subsequently admitted. He reported cough over the last couple of weeks and increasing nasal congestion. He did complain of chest pain, but this seems to be a chronic newly daily complaint for him and was not terribly different than his daily symptoms. At the time of admission, there were a few expiratory wheezes appreciated on exam and the patient was subsequently treated for a suspected COPD exacerbation with corticosteroids, inhaled long acting beta-agonist, inhaled corticosteroid, and long- acting antimuscarinic as well as p.r.n. DuoNeb. The patient reported improvement in his dyspnea, but remains with some congestive symptoms. It sounds like these are somewhat chronic for him and he is on Nasonex as well as loratadine and Singulair. DISPOSITION AND FOLLOWUP PLAN: The patient is being discharged to home where he lives with his . Medication changes were made as outlined above including adding Spiriva to his COPD regimen and prednisone as a tapering dose as well as intranasal ipratropium. Suggested to the patient if his nasal congestion is a chronic and bothersome complaint, then perhaps evaluation by ENT would be the next appropriate step. Otherwise, recommend followup with primary care provider regarding his hospitalization. ERAN DOUGLASS [id number]/[facility] #: [id number] JAN
== END 2017-01-29 13:37 | disposition home or self-care (01) ==
LOC: ED 12:03 → MEDTELE 13:55 → INTOOBSV 13:55
PROVIDERS: ADMIT Internal Medicine; ATTEND Internal Medicine
DX: J44.1 Chronic obstructive pulmonary disease with (acute) exacerbation (principal); R09.81 Nasal congestion; I25.10 Atherosclerotic heart disease of native coronary artery without angina pectoris; E11.9 Type 2 diabetes mellitus without complications; E78.5 Hyperlipidemia, unspecified; G89.29 Other chronic pain; E03.9 Hypothyroidism, unspecified; E66.9 Obesity, unspecified; Z68.36 Body mass index [BMI] 36.0-36.9, adult; F17.210 Nicotine dependence, cigarettes, uncomplicated; Z79.899 Other long term (current) drug therapy; Z79.82 Long term (current) use of aspirin; Z88.0 Allergy status to penicillin; Z95.5 Presence of coronary angioplasty implant and graft
CPT/HCPCS: 36415; 71010; 80048; 80053; 82803; 83605; 83880; 84484; 85025; 85379; 85610; 87040; 94640; 94760; 96372; 96374; 96376; 99284; A9270-GY; G0378; J1644; J2920; J2930

== ENCOUNTER 2017-05-28 16:53 | Emergency (ER) | payer MEDICARE ==
[2017-05-28] MEDS ORDERED: methylPREDNISolone 125 MG* 2 ML VIAL IV ONE (17:26)
[2017-05-28] MEDS ORDERED: Albuterol/Ipratropium NEB.SOL* Albuterol 2.5 MG/Ipratropium 0.5 MG 3 ML INH ONE (17:26)
[2017-05-28 17:41] LABS: Hematocrit 51 % (42-52); Hemoglobin 17.1 g/dl (14.0-18.0); Mean Corpuscular HGB Conc 34 g/dl (31-36); Mean Corpuscular Hemoglobin 33 pg (27-31); Mean Corpuscular Volume 98 fL (80-94); Mean Platelet Volume 8 um3 (7.4-10.4); Red Blood Count 5.17 10^6/ul (4.0-5.4); Red Cell Distribution Width 15 % (10.5-15); White Blood Count 9.6 10^3/ul (3.5-10.8)
[2017-05-28 17:53] LABS: Albumin 3.6 g/dL (3.2-5.2); BUN/Creatinine Ratio 16.8 (8-20); EGFR African American 73.4 (>60); EGFR Non-African American 57.1 (>60); Globulin 3.4 g/dL (2-4); Potassium 4.3 mmol/L (3.5-5.0); Total Bilirubin 0.8 mg/dL (0.2-1.0)
[2017-05-28 17:54] LABS: Troponin I 0.02 ng/mL (<0.04)
--- NOTE | 2017-05-28 19:41 | RAD ---
Indication: Shortness of breath. Chest pain. Chronic obstructive pulmonary disease. History of congestive heart failure. Comparison: January 28, 2017 Technique: Upright AP 1755 hours Report: Mild prominence of the interstitial markings. Negative for pleural effusion or pneumothorax. Unchanged cardiomegaly. Median sternotomy wires. Unremarkable central pulmonary vasculature and mediastinal contours. IMPRESSION: Stigmata of chronic obstructive pulmonary disease consistent with history. Cardiomegaly. No acute cardiopulmonary process evident.
[2017-05-28] MEDS ORDERED: Acetaminophen TAB* 325 MG PO ONE (21:10)
[2017-05-28] MEDS ORDERED: Pseudoephedrine TAB* 30 MG PO ONE (21:33)
[2017-05-28] MEDS ORDERED: Clarithromycin TAB* 500 MG PO ONE (22:57)
--- NOTE | 2017-05-28 23:45 | ED ---
Mirlande Malcolm Jason, scribed for Abram Romo MD on 05/28/17 at 1723 . HPI Chest Pain - HPI Summary HPI Summary: This patient is a 71 year old M presenting to [facility] with a chief complaint of left-sided chest pain since 1600 today. The patient states that he was sleeping when he was woken by his chest pain. The patient rates the pain 10/10 in severity. Symptoms aggravated by nothing. Symptoms alleviated by nitroglycerin. Patient reports skin diaphoresis, nausea, nasal congestion, headache, SOB, and lightheadedness. - History of Current Complaint Chief Complaint: EDChestPainROMI Time Seen by Provider: 05/28/17 17:03 Hx Obtained From: Patient Onset/Duration: Started Hours Ago - Since 1600, Still Present Timing: Constant, Lasting Hours - Since 1600, Lasting Weeks Pain Intensity: 10 Pain Scale Used: 0-10 Numeric Associated Signs and Symptoms: Positive: Other: - left-sided chest paindiaphoresis, nausea, nasal congestion, headache, SOB, and lightheadedness. - Additional Pertinent History Primary Care Physician: EDUARDO - Allergy/Home Medications Allergies/Adverse Reactions: Allergies Allergy/AdvReac Type Severity Reaction Status Date / Time Penicillins Allergy Severe Anaphylatic Verified 10/29/16 07:39 Shock Latex Allergy Intermediate Hives Verified 10/29/16 07:39 Wheat Extract Allergy Unknown Unknown Verified 10/29/16 07:39 Reaction Details PMH/Surg Hx/FS Hx/Imm Hx Previously Healthy: No Endocrine/Hematology History: Reports: Hx Anticoagulant Therapy, Hx Diabetes - oral medication, diet Denies: Hx Blood Disorders, Hx Blood Transfusions, Hx Bone Marrow Disease, Hx Systemic Lupus Erythematosus, Hx Sickle Cell Disease, Hx Thyroid Disease, Hx Anemia, Hx Unexplained Bleeding, Other Endocrine/Hematological Disorders Cardiovascular History: Reports: Hx Angina - mi this year, Hx Angioplasty - stents in [place],, Hx Congestive Heart Failure, Hx Hypercholesterolemia, Hx Hypertension, Other Cardiovascular Problems/Disorders - SVT; Bypass x 2005 Denies: Hx Aneurysm, Hx Cardiac Arrest - positive for mi in past, Hx Cardiomegaly, Hx Congenital Heart Disease, Hx Coronary Artery Disease, Hx Deep Vein Thrombosis, Hx Embolism Respiratory History: Reports: Hx Asthma, Hx Chronic Obstructive Pulmonary Disease (COPD), Hx Sleep Apnea - HX CPAP/NO LONGER USES, Other Respiratory Problems/Disorders GI History: Reports: Hx Gastroesophageal Reflux Disease, Other GI Disorders - CONSTIPATION, PUD, gastric cristy/HERNIA ON RT SIDE Denies: Hx Ulcer History: Reports: Hx Benign Prostatic Hyperplasia, Other Problems/ Disorders - BPH Denies: Hx Renal Disease Musculoskeletal History: Reports: Hx Arthritis, Hx Back Problems, Other Musculoskeletal History - chain saw injury to right lower Sensory History: Reports: Hx Contacts or Glasses Denies: Hx Cataracts, Hx Eye Injury, Hx Eye Prosthesis, Hx Glaucoma, Hx Legally Blind, Hx Macular Degeneration, Hx Vision Problem, Hx Deafness, Hx Hearing Aid, Hx Hearing Problem, Other Sensory Impairments Opthamlomology History: Reports: Hx Contacts or Glasses Denies: Hx Cataracts, Hx Eye Injury, Hx Eye Prosthesis, Hx Glaucoma, Hx Legally Blind, Hx Macular Degeneration, Hx Vision Problem, Other Sensory Impairments Psychiatric History: Reports: Hx Depression - Surgical History Surgery Procedure, Year, and Place: CARDIAC STENTS, CABG 2004; Abdominal exploratory surgery at age 17; gastric cristy. grafting to right lower extremity after traumatic injury Hx Anesthesia Reactions: No Infectious Disease History: No Infectious Disease History: Denies: Hx Clostridium Difficile, Hx Hepatitis, Hx Human Immunodeficiency Virus (HIV), Hx of Known/Suspected MRSA, Hx Shingles, Hx Tuberculosis, Hx Known/ Suspected VRE, Hx Known/Suspected VRSA, History Other Infectious Disease, Traveled Outside the [place] in Last 30 Days - Family History Known Family History: Positive: Cardiac Disease, Hypertension, Diabetes - Social History Alcohol Use: None Substance Use Type: Reports: None Hx Tobacco Use: Yes Smoking Status (MU): Heavy Every Day Tobacco Smoker Type: Cigarettes Review of Systems Positive: Skin Diaphoresis Positive: Other - nasal congestion Positive: Chest Pain - left-sided Positive: Shortness Of Breath Positive: Nausea Neurological: Other - lightheadedness Positive: Headache All Other Systems Reviewed And Are Negative: Yes Physical Exam - Summary Physical Exam Summary: Appearance: The patient is an obese male in no acute distress and in no acute pain. Skin: The skin is warm and dry and skin color reflects adequate perfusion. HEENT: ~The head is normocephalic and atraumatic. The pupils are equal and reactive. The conjunctivae are clear and without drainage. ~Nares are patent and without drainage. ~Mouth reveals moist mucous membranes and the throat is without erythema and exudate. ~The external ears are intact. The ear canals are patent and without drainage. The tympanic membranes are intact. Neck: the neck is supple with full range of motion and non-tender. There are no carotid bruits. ~There is no neck vein distension. Respiratory: Tender in the epigastrium. Decreased breath sounds bilaterally Cardiovascular: Heart is regular rate and rhythm. ~There is no murmur or rub auscultated. ~~There is no peripheral edema and pulses are symmetrical and equal. Abdomen: The abdomen is soft and non-tender. ~There are normal bowel sounds heard in all four quadrants and there is no organomegaly palpated. Musculoskeletal: There is no back tenderness noted. ~Extremities are non-tender with full range of motion. ~There is good capillary refill. ~There is no peripheral edema or calf tenderness elicited. Neurological: Patient is alert and oriented to person, place and time. ~The patient has symmetrical motor strength in all four extremities. ~Cranial nerves are grossly intact. Deep tendon reflexes are symmetrical and equal in all four extremities. Psychiatric: The patient has an appropriate affect and does not exhibit any anxiety or depression. Triage Information Reviewed: Yes Vital Signs On Initial Exam: Initial Vitals Temp Pulse Resp BP Pulse Ox 97.8 F 74 22 135/82 93 05/28/17 16:57 05/28/17 16:57 05/28/17 16:57 05/28/17 16:57 05/28/17 16:57 Vital Signs Reviewed: Yes Diagnostics - Vital Signs Vital Signs Temp Pulse Resp BP Pulse Ox 05/28/17 16:57 97.8 F 74 22 135/82 93 - Laboratory Lab Results: Lab Results 05/28/17 05/28/17 05/28/17 Range/Units 17:15 17:15 17:15 WBC 9.6 (3.5-10.8) 10^3/ul RBC 5.17 (4.0-5.4) 10^6/ul Hgb 17.1 (14.0-18.0) g/dl Hct 51 (42-52) % MCV 98 H (80-94) fL MCH 33 H (27-31) pg MCHC 34 (31-36) g/dl RDW 15 (10.5-15) % Plt Count 227 (150-450) 10^3/ul MPV 8 (7.4-10.4) um3 Neut % (Auto) 90.1 H (38-83) % Lymph % (Auto) 3.2 L (25-47) % Stewart % (Auto) 4.9 (1-9) % Eos % (Auto) 1.5 (0-6) % Baso % (Auto) 0.3 (0-2) % Absolute Neuts (auto) 8.6 H (1.5-7.7) 10^3/ul Absolute Lymphs (auto) 0.3 L (1.0-4.8) 10^3/ul Absolute Monos (auto) 0.5 (0-0.8) 10^3/ul Absolute Eos (auto) 0.1 (0-0.6) 10^3/ul Absolute Basos (auto) 0 (0-0.2) 10^3/ul Absolute Nucleated RBC 0.01 10^3/ul Nucleated RBC % 0.1 INR (Anticoag Therapy) (0.77-1.02) D-Dimer, Quantitative (Less Than 230) ng/mL Sodium 133 (133-145) mmol/L Potassium 4.3 (3.5-5.0) mmol/L Chloride 98 L (101-111) mmol/L Carbon Dioxide 30 (22-32) mmol/L Anion Gap 5 (2-11) mmol/L BUN 21 (6-24) mg/dL Creatinine 1.25 H (0.67-1.17) mg/dL Est GFR ( Amer) 73.4 (>60) Est GFR (Non-Af Amer) 57.1 (>60) BUN/Creatinine Ratio 16.8 (8-20) Glucose 95 (70-100) mg/dL Lactic Acid (0.5-2.0) mmol/L Calcium 9.0 (8.6-10.3) mg/dL Total Bilirubin 0.80 (0.2-1.0) mg/dL AST 16 (13-39) U/L ALT 15 (7-52) U/L Alkaline Phosphatase 66 (34-104) U/L Troponin I 0.02 (<0.04) ng/mL B-Natriuretic Peptide 86 ( - 100) pg/mL Total Protein 7.0 (6.4-8.9) g/dL Albumin 3.6 (3.2-5.2) g/dL Globulin 3.4 (2-4) g/dL Albumin/Globulin Ratio 1.1 (1-3) 05/28/17 05/28/17 05/28/17 Range/Units 17:15 17:15 20:48 WBC (3.5-10.8) 10^3/ul RBC (4.0-5.4) 10^6/ul Hgb (14.0-18.0) g/dl Hct (42-52) % MCV (80-94) fL MCH (27-31) pg MCHC (31-36) g/dl RDW (10.5-15) % Plt Count (150-450) 10^3/ul MPV (7.4-10.4) um3 Neut % (Auto) (38-83) % Lymph % (Auto) (25-47) % Stewart % (Auto) (1-9) % Eos % (Auto) (0-6) % Baso % (Auto) (0-2) % Absolute Neuts (auto) (1.5-7.7) 10^3/ul Absolute Lymphs (auto) (1.0-4.8) 10^3/ul Absolute Monos (auto) (0-0.8) 10^3/ul Absolute Eos (auto) (0-0.6) 10^3/ul Absolute Basos (auto) (0-0.2) 10^3/ul Absolute Nucleated RBC 10^3/ul Nucleated RBC % INR (Anticoag Therapy) 0.88 (0.77-1.02) D-Dimer, Quantitative 224 (Less Than 230) ng/mL Sodium (133-145) mmol/L Potassium (3.5-5.0) mmol/L Chloride (101-111) mmol/L Carbon Dioxide (22-32) mmol/L Anion Gap (2-11) mmol/L BUN (6-24) mg/dL Creatinine (0.67-1.17) mg/dL Est GFR ( Amer) (>60) Est GFR (Non-Af Amer) (>60) BUN/Creatinine Ratio (8-20) Glucose (70-100) mg/dL Lactic Acid 0.8 (0.5-2.0) mmol/L Calcium (8.6-10.3) mg/dL Total Bilirubin (0.2-1.0) mg/dL AST (13-39) U/L ALT (7-52) U/L Alkaline Phosphatase (34-104) U/L Troponin I 0.02 (<0.04) ng/mL B-Natriuretic Peptide ( - 100) pg/mL Total Protein (6.4-8.9) g/dL Albumin (3.2-5.2) g/dL Globulin (2-4) g/dL Albumin/Globulin Ratio (1-3) Result Diagrams: 05/28/17 17:15 05/28/17 17:15 Lab Statement: Any lab studies that have been ordered have been reviewed, and results considered in the medical decision making process. - Radiology CXR Radiology Interpretation Completed By: Radiologist - Stigmata of chronic obstructive pulmonary disease consistent with history. Cardiomegaly. No acute cardiopulmonary process evident. ED physician has reviewed this radiology report and agrees. - EKG 1729 Cardiac Rate: NL EKG Rhythm: Sinus Rhythm - 67 BPM Ectopy: None EKG Interpretation: Left BBB, left axis deviation, left anterior fascicular block Chest Pain Course/Dx - Course Course Of Treatment: Mr. Craig presented with his frequent CP and SOB. He normally takes NTG for this which he did and it helped. He was mostly C/O a stuffed up nose making it hard to breathe. He has been W/U'd with 3 troponins and the third is pending. If it is normal he will be D/C'd with antibiotics and steroids. He was given steroids and a neb here. - Diagnoses Provider Diagnoses: COPD exacerbation, Bronchitis Discharge - Discharge Plan Condition: Stable Disposition: HOME Prescriptions: Clarithromycin TAB* [Biaxin TAB*] 500 mg PO BID #20 tab Methylprednisolone [Medrol Dosepak 4 MG*] 4 mg PO .SEE KATELYN INSTRUCTION #1 tab Patient Education Materials: COPD (Chronic Obstructive Pulmonary Disease) (ED) , Chronic Bronchitis (ED) Referrals: Santy ANDRADEP,Elin [Primary Care Provider] - The documentation as recorded by the Mirlande fernandes Jason accurately reflects the service I personally performed and the decisions made by me, Abram Romo MD.
[2017-05-29 00:35] VITALS: BP 129/72
== END 2017-05-29 00:21 | disposition home or self-care (01) ==
LOC: ED 16:53
DX: J44.1 Chronic obstructive pulmonary disease with (acute) exacerbation (principal); J20.9 Acute bronchitis, unspecified; J44.0 Chronic obstructive pulmonary disease with (acute) lower respiratory infection; R11.0 Nausea; R09.81 Nasal congestion; R51 Headache; R06.02 Shortness of breath; R42 Dizziness and giddiness; Z79.01 Long term (current) use of anticoagulants; F17.210 Nicotine dependence, cigarettes, uncomplicated
CPT/HCPCS: 36415; 71010; 80053; 83605; 83880; 84484; 85025; 85379; 85610; 93005; 94640; 99283; A9270-GY; J2930

== ENCOUNTER 2017-08-02 20:16 | Inpatient (IN) | payer MEDICARE ==
[2017-08-02] MEDS ORDERED: Aspirin EC TAB* 325 MG PO ONE (21:19)
[2017-08-02] MEDS ORDERED: Nitroglycerin TAB 0.4 MG* 0.4 MG TAB SL ONE (21:19)
[2017-08-02] MEDS ORDERED: Aspirin Low Dose CHEW TAB* 81 MG ONE (21:55)
[2017-08-02] MEDS ORDERED: Aspirin Low Dose CHEW TAB* 81 MG PO ONE (21:56)
--- NOTE | 2017-08-02 22:02 | RAD ---
INDICATION: Chest pain COMPARISON: Most recent comparison chest x-rays dated May 28, 2017. TECHNIQUE: Single AP portable view of the chest was obtained. FINDINGS: Image quality is compromised due to the relative inferiority of a portable chest x-ray. Again seen are sternotomy wires and surgical clips overlying the mediastinum. There are surgical clips overlying the left upper quadrant as well. The heart and mediastinum exhibit normal size and contour. The lungs are grossly clear. There is no evidence of a large pleural effusion. Visualized bones are normal for the patient's age. IMPRESSION: No radiographic evidence for acute cardiopulmonary abnormality on this portable chest x-ray.
[2017-08-02 22:13] LABS: EGFR Non-African American 58.7 (>60)
[2017-08-02 22:15] LABS: INR 0.86 (0.77-1.02)
[2017-08-02 22:39] LABS: Urine Appearance Cloudy; Urine Color Red
[2017-08-02] MEDS ORDERED: cefTRIAXone(*) 1 GM in NS 0.9% 50 ML* 50 ML IVPB ONE (22:53)
--- NOTE | 2017-08-02 22:53 | ED ---
Corey Malcolm Stephanie, scribed for Jb Thao MD on 08/02/17 at 2142 . HPI Chest Pain - HPI Summary HPI Summary: The pt is a 71 y/o M presenting to the ED with c/o R and L chest wall pain that began 2 days ago on 07/31 at 09:00. Symptoms include weight gain, cough, SOB, constipation, diaphoresis, pain in L arm and jaw, hematuria (began during ED visit, penile burning, and black stools. The pt describes the CP as having gas stuck in the chest. The pt denies hx of bladder cancer and kidney stones. The pt states he took Nitro SL x2 at 1400 with no effects. Pt has hx of TX with CABG. - History of Current Complaint Chief Complaint: EDChestPainROMI Time Seen by Provider: 08/02/17 21:12 Hx Obtained From: Patient Onset/Duration: Started Days Ago - 2, Still Present Time of Onset: 09:00 Timing: Constant Current Severity: Moderate Pain Intensity: 5 Pain Scale Used: 0-10 Numeric Chest Pain Location: Left Anterior, Right Anterior Chest Pain Radiates: Yes Chest Pain Radiates To:: Arm - L, Jaw - L Character: Other: - "gas in chest" Aggravating Factor(s): Nothing Alleviating Factor(s): Nothing Associated Signs and Symptoms: Positive: Chest Pain, Shortness of Breath, Diaphoresis, Cough, Other: - weight gain, cough, constipation, pain in L arm and jaw, hematuria (began during ED visit), penile burning, and black stools - Additional Pertinent History Primary Care Physician: EDUARDO - Allergy/Home Medications Allergies/Adverse Reactions: Allergies Allergy/AdvReac Type Severity Reaction Status Date / Time latex Allergy Hives Verified 08/02/17 20:31 Penicillins Allergy Anaphylatic Verified 08/02/17 20:31 Shock wheat Allergy Unknown Verified 08/02/17 20:31 Reaction Details PMH/Surg Hx/FS Hx/Imm Hx Endocrine/Hematology History: Reports: Hx Anticoagulant Therapy, Hx Diabetes - oral medication, diet Denies: Hx Blood Disorders, Hx Blood Transfusions, Hx Bone Marrow Disease, Hx Systemic Lupus Erythematosus, Hx Sickle Cell Disease, Hx Thyroid Disease, Hx Anemia, Hx Unexplained Bleeding, Other Endocrine/Hematological Disorders Cardiovascular History: Reports: Hx Angina - mi this year, Hx Angioplasty - stents in [place],, Hx Congestive Heart Failure, Hx Hypercholesterolemia, Hx Hypertension, Other Cardiovascular Problems/Disorders - SVT; Bypass x 4 2005 Denies: Hx Aneurysm, Hx Cardiac Arrest - positive for mi in past, Hx Cardiomegaly, Hx Congenital Heart Disease, Hx Coronary Artery Disease, Hx Deep Vein Thrombosis, Hx Embolism Respiratory History: Reports: Hx Asthma, Hx Chronic Obstructive Pulmonary Disease (COPD), Hx Sleep Apnea - HX CPAP/NO LONGER USES, Other Respiratory Problems/Disorders GI History: Reports: Hx Gastroesophageal Reflux Disease, Other GI Disorders - CONSTIPATION, PUD, gastric cristy/HERNIA ON RT SIDE Denies: Hx Ulcer History: Reports: Hx Benign Prostatic Hyperplasia, Other Problems/ Disorders - BPH Denies: Hx Renal Disease Musculoskeletal History: Reports: Hx Arthritis, Hx Back Problems, Other Musculoskeletal History - chain saw injury to right lower Sensory History: Reports: Hx Contacts or Glasses Denies: Hx Cataracts, Hx Eye Injury, Hx Eye Prosthesis, Hx Glaucoma, Hx Legally Blind, Hx Macular Degeneration, Hx Vision Problem, Hx Deafness, Hx Hearing Aid, Hx Hearing Problem, Other Sensory Impairments Opthamlomology History: Reports: Hx Contacts or Glasses Denies: Hx Cataracts, Hx Eye Injury, Hx Eye Prosthesis, Hx Glaucoma, Hx Legally Blind, Hx Macular Degeneration, Hx Vision Problem, Other Sensory Impairments Psychiatric History: Reports: Hx Depression - Surgical History Surgery Procedure, Year, and Place: CARDIAC STENTS, CABG 2004; Abdominal exploratory surgery at age 17; gastric cristy. grafting to right lower extremity after traumatic injury Hx Anesthesia Reactions: No Infectious Disease History: No Infectious Disease History: Denies: Hx Clostridium Difficile, Hx Hepatitis, Hx Human Immunodeficiency Virus (HIV), Hx of Known/Suspected MRSA, Hx Shingles, Hx Tuberculosis, Hx Known/ Suspected VRE, Hx Known/Suspected VRSA, History Other Infectious Disease, Traveled Outside the [place] in Last 30 Days - Family History Known Family History: Positive: Cardiac Disease, Hypertension, Diabetes - Social History Occupation: Disabled Lives: Alone Alcohol Use: None Substance Use Type: Reports: None Hx Tobacco Use: Yes Smoking Status (MU): Heavy Every Day Tobacco Smoker Type: Cigarettes Review of Systems Positive: Other - weight gain. Negative: Fever, Chills, Skin Diaphoresis Negative: Erythema Negative: Sore Throat Positive: Chest Pain Positive: Shortness Of Breath, Cough Positive: Other - black stool. Negative: Abdominal Pain, Vomiting, Nausea Positive: burning - penile, hematuria. Negative: dysuria Positive: Other - L arm pain, L jaw pain. Negative: Myalgia, Edema Negative: Rash Neurological: Other - Negative: dizziness All Other Systems Reviewed And Are Negative: Yes Physical Exam - Summary Physical Exam Summary: Constitutional: Well-developed, Well-nourished, Alert. (-) Distressed Skin: Warm, Dry HENT: Normocephalic; Atraumatic Eyes: Conjunctiva normal Neck: Musculoskeletal ROM normal neck. (-) JVD, (-) Stridor, (-) Tracheal deviation Cardio: Rhythm regular, rate normal, Heart sounds normal; Intact distal pulses; The pedal pulses are 2+ and symmetric. Radial pulses are 2+ and symmetric. (-) Murmur Pulmonary/Chest wall: Effort normal. (-) Respiratory distress, (-) Wheezes, (-) Rales Abd: Soft, (-) Tenderness, (-) Distension, (-) Guarding, (-) Rebound, Midline abd significantly scared from prior surgeries Musculoskeletal: trace pedal edema Lymph: (-) Cervical adenopathy Neuro: Alert, Oriented x3 Psych: Mood and affect Normal Triage Information Reviewed: Yes Vital Signs On Initial Exam: Initial Vitals Temp Pulse Resp BP Pulse Ox 97.0 F 63 18 127/72 100 08/02/17 20:28 08/02/17 20:28 08/02/17 20:28 08/02/17 20:28 08/02/17 20:28 Vital Signs Reviewed: Yes Diagnostics - Vital Signs Vital Signs Temp Pulse Resp BP Pulse Ox 08/02/17 20:28 97.0 F 63 18 127/72 100 - Laboratory Result Diagrams: 08/02/17 21:47 Lab Statement: Any lab studies that have been ordered have been reviewed, and results considered in the medical decision making process. - Radiology CXR Xray Interpretation: No Acute Changes Radiology Interpretation Completed By: Radiologist - No radiographic evidence for acute cardiopulmonary abnormality on this portable chest x-ray. XR Abdomen Xray Interpretation: No Acute Changes Radiology Interpretation Completed By: Radiologist - EKG 20:20 EKG Rhythm: Sinus Rhythm - 67 BPM EKG Interpretation: No STEMI EKG Comparison: No Significant Change - since May 2017 Chest Pain Course/Dx - Course Course Of Treatment: The pt has intermittent CP since yesterday. The pt has hx of CAD. He had spontaneous hematuria today while in ED. CP relieved with nitro. He should have TX ruled out and possibly a stress test in the hospital. ED physician will speak to Dr. Alex to get the pt admitted. - Diagnoses Provider Diagnoses: Chest pain, unspecified, Hematuria, CAD (coronary artery disease) Discharge - Discharge Plan Condition: Stable Disposition: ADMITTED TO [facility] Referrals: Santy CORDERO [employer],Elin [Primary Care Provider] - The documentation as recorded by the Corey fernandes Stephanie accurately reflects the service I personally performed and the decisions made by me, Jb Thao MD.
[2017-08-02 22:57] LABS: ABS Basophils 0 10^3/ul (0-0.2); ABS Eosinophils 0.1 10^3/ul (0-0.6); ABS Lymphocytes 0.9 10^3/ul (1.0-4.8); ABS Monocytes 0.7 10^3/ul (0-0.8); ABS Neutrophils 7.1 10^3/ul (1.5-7.7); ABS Nucleated RBC 0 10^3/ul; Eosinophil % 1.2 % (0-6); Hematocrit 57 % (42-52); Hemoglobin 18.7 g/dl (14.0-18.0); Lymphocyte % 10.4 % (25-47); Mean Corpuscular HGB Conc 33 g/dl (31-36); Mean Corpuscular Hemoglobin 32 pg (27-31); Mean Corpuscular Volume 98 fL (80-94); Mean Platelet Volume 9 um3 (7.4-10.4); Nucleated Red Blood Cells % 0; Platelet Count 164 10^3/ul (150-450); Red Cell Distribution Width 15 % (10.5-15); White Blood Count 8.9 10^3/ul (3.5-10.8)
[2017-08-02] MEDS ORDERED: Al Hydrox/Mg Hydrox/Simet LIQ* 30 ML UDC PO PRN (23:42)
[2017-08-02] MEDS ORDERED: Sodium Phosphate ADULT ENEMA* 118 ml bottle PR ONE (23:45)
[2017-08-02] MEDS ORDERED: Mouth Piece, Nicotine* 1 EACH CARTRIDGE INH PRN ×2 (23:49)
[2017-08-02] MEDS ORDERED: Nicotine Inhaler* 10 MG AMP INH PRN (23:49)
[2017-08-02] MEDS ORDERED: Dextrose 50% Syringe 50 ML* 25 GM/50 ML SYRINGE IV PUSH PRN (23:51)
[2017-08-03] MEDS ORDERED: Albuterol/Ipratropium NEB.SOL* Albuterol 2.5 MG/Ipratropium 0.5 MG 3 ML INH PRN (00:15)
[2017-08-03] MEDS ORDERED: NS 0.9% 1000 ML* 1,000 ML IV SCH (00:30)
[2017-08-03] MEDS: Albuterol/Ipratropium NEB.SOL* Albuterol 2.5 MG/Ipratropium 0.5 MG 3 ML INH SCH ×2 (01:32→07:26)
[2017-08-03] MEDS: oxyCODONE/Acetamin 5/325 MG* TAB PO PRN ×2 (02:17→20:14)
[2017-08-03] MEDS: Ondansetron INJ* 2 MG/ML VIAL IV PRN ×2 (02:20→06:10)
[2017-08-03 03:19] LABS: ABS Basophils 0 10^3/ul (0-0.2); ABS Eosinophils 0.1 10^3/ul (0-0.6); ABS Lymphocytes 0.7 10^3/ul (1.0-4.8); ABS Monocytes 0.9 10^3/ul (0-0.8); ABS Neutrophils 9.6 10^3/ul (1.5-7.7); ABS Nucleated RBC 0 10^3/ul; Eosinophil % 0.8 % (0-6); Hematocrit 53 % (42-52); Hemoglobin 17.4 g/dl (14.0-18.0); Lymphocyte % 6.2 % (25-47); Mean Corpuscular HGB Conc 33 g/dl (31-36); Mean Corpuscular Hemoglobin 33 pg (27-31); Mean Corpuscular Volume 98 fL (80-94); Mean Platelet Volume 8 um3 (7.4-10.4); Nucleated Red Blood Cells % 0; Platelet Count 154 10^3/ul (150-450); Red Blood Count 5.37 10^6/ul (4.0-5.4); Red Cell Distribution Width 15 % (10.5-15); White Blood Count 11.4 10^3/ul (3.5-10.8)
[2017-08-03] MEDS: Docusate CAP* 100 MG PO SCH ×3 (03:31→20:11)
[2017-08-03] MEDS: Senna TAB PO SCH ×3 (03:31→20:13)
[2017-08-03 03:33] LABS: EGFR Non-African American 66.2 (>60)
[2017-08-03] MEDS: Levothyroxine TAB* 88 MCG TAB PO SCH (05:19)
[2017-08-03] MEDS: Heparin VIAL(*) 5000 UNITS/ML VIAL (FIVE THOUSAND) SUBCUT SCH ×3 (05:19→20:15)
[2017-08-03] MEDS ORDERED: Omeprazole CAP* 20 MG PO SCH (06:00)
[2017-08-03] MEDS: Acetaminophen TAB* 325 MG PO PRN ×2 (06:10→23:37)
--- NOTE | 2017-08-03 06:57 | HP ---
CC: Elin Madera NP * HISTORY AND PHYSICAL: DATE OF ADMISSION: 08/02/17. TIME OF EVALUATION: 2300. PRIMARY CARE PHYSICIAN: Elin Madera NP CHIEF COMPLAINT: Increase in burping and chest discomfort. HISTORY OF PRESENT ILLNESS: This is a 71-year-old male with past medical history of CAD, status post bypass, CHF, and COPD, still smoking who presents to the emergency room with increase in burping, indigestion, and chest pain every time he has indigestion that has been going on for the past few days. He states he has been trying to cut out the meat in his diet and he has been having a lot of burping and gas that is giving him chest pain, short of breath, nauseated. He is breaking out into a sweat as well. He has a chronic productive cough from his COPD. He has been having issues with having a bowel movement over the past few days. He feels like his abdomen is bloated and distended. When he came to the emergency room, he also started peeing blood and having difficulty urinating with burning with peeing. The patient denies any fevers, no vomiting, no diarrhea, no rash, no headache, no weakness, no falls. Otherwise, review of systems is negative. In the emergency room, the patient had labs, imaging, and he was referred to the hospitalist service for further evaluation. In the emergency room, the patient was given aspirin and nitroglycerin and was referred to the hospitalist service. The patient states he is chest pain free since he got the nitro. PAST MEDICAL HISTORY: 1. Coronary artery disease, status post coronary artery bypass graft and stent placement. 2. History of COPD. 3. Tobacco use. 4. Constipation. 5. Diabetes. 6. Hyperlipidemia. 7. Morbid obesity. 8. GERD. 9. Hypothyroidism. 10. History of gastric stapling for peptic ulcer disease. 11. History of ventral hernia repair with mesh. MEDICATIONS: 1. Tiotropium inhaled daily. 2. Spironolactone 25 mg p.o. daily. 3. Zantac 150 p.o. daily. 4. Singulair 10 mg daily. 5. Nasonex spray b.i.d. 6. Metoprolol succinate 50 mg p.o. b.i.d. 7. Loratadine 10 mg daily. 8. Lisinopril 2.5 mg daily. 9. Tradjenta 5 mg p.o. daily. 10. Synthroid 88 mcg daily. 11. Imdur ER 30 mg daily. 12. Ipratropium b.i.d. 13. Gabapentin 600 mg p.o. t.i.d. 14. Lasix 80 mg p.o. daily. 15. Advair 1 puff inhaled b.i.d. 16. Ferrous sulfate 325 mg p.o. t.i.d. 17. Ergocalciferol 50,000 units p.o. weekly. 18. Colace 100 mg p.o. b.i.d. 19. Lipitor 40 mg daily. 20. Aspirin 325 mg daily. 21. DuoNeb inhaled q.6 hours. ALLERGIES: Latex, Penicillin and wheat. FAMILY HISTORY: Father with an NM at age 76, mother with dementia. SOCIAL HISTORY: The patient lives at home with his girlfriend, Maria Elena who is his healthcare proxy. He smokes up to 2 packs per day for the past 50 years. He ambulates with the cane as needed. No alcohol use. No illicit drug use. CODE STATUS: He states must be a DNR/DNI. We will have him fill the MOLST form here. REVIEW OF SYSTEMS: A 14-point review of systems as mentioned in the HPI, otherwise negative. PHYSICAL EXAMINATION GENERAL: No acute distress, resting comfortably. VITAL SIGNS: Temp 97.0, pulse rate 65, respiratory rate 15, oxygen saturation 100% on room air, and blood pressure 131/95. HEENT: Head: Normocephalic. Pupils are equal and reactive to light. Anicteric. Oropharynx: Mucous membranes moist. NECK: Supple. No lymphadenopathy. RESPIRATORY: Diminished breath sounds. Prolonged expiration phase. No wheezing, rhonchi, or rales. CARDIAC: Regular rate and rhythm. Soft systolic murmur heard throughout. ABDOMEN: Morbidly obese, soft, nontender, nondistended. No rebound or guarding. EXTREMITIES: Trace pretibial edema. NEUROLOGIC: Alert and oriented x3. No focal neurologic deficits. DIAGNOSTIC STUDIES/LAB DATA: White count 8.9, hemoglobin 18.7, hematocrit 57, platelets 164. INR 0.86. Sodium 136, potassium 4.9, chloride 102, bicarb 28, BUN 14, creatinine 1.22. Troponin 0.01. RADIOGRAPHIC DATA: Chest x-ray, no acute findings. EKG, normal sinus rhythm. Abdominal x-ray shows stool throughout the colon. ASSESSMENT: This is a 71-year-old male with past medical history of coronary artery disease and chronic obstructive pulmonary disease, he is still smoking, who presents to the emergency room with indigestion, burping, and chest pain. 1. Indigestion. Assessment: I suspect this is all related to his constipation. There is also a concern for cardiac etiology with his risk factors, it is not unreasonable to stress him. Plan: We will place him on an aggressive bowel regimen. We will trend his troponin, check a lipid panel, keep him on his cardiac medications, and do a stress test in the morning. Resume his aspirin, atorvastatin, and metoprolol. 2. Chronic obstructive pulmonary disease. Assessment appears stable. Resume inhaler regimen as prescribed. 3. Hematuria. Assessment: This just started when he came to the emergency room. He does have a history of kidney stones. It is possible this is contributing to his hematuria. . Plan: We will give him some fluids down here and do a CAT scan to rule out a stone. 4. Polycythemia. I suspect this is hemoconcentrated. We will give him some fluids and followup CBC in the morning. 5. Chronic medical problems: History of coronary artery disease and congestive heart failure: I do not have a recent echo to confirm this is congestive heart failure although he is on Lasix and spironolactone. His creatinine is slightly bumped as well as his potassium. We will hold his spironolactone and Lasix from now, consider resuming in the morning of his labs and his symptoms have improved. Continue his metoprolol and his Imdur. Also we will hold his lisinopril for now. 6. Hypothyroidism. Resume his Synthroid. 7. Diabetes. Hold his oral and just place him on lispro sliding scale. 8. Gastroesophageal reflux disease. We will place him on omeprazole. 9. The patient is on iron. He is polycythemic with an elevated MCV. We will hold his iron for now. 10. FEN: N.p.o. For a stress test. 11. DVT prophylaxis: The patient scores high risk. We will place him on heparin subcutaneous t.i.d. 12. Code status: The patient confirmed that he would like to be a DNR/DNI. We will fill out his MOLST form. PATIENT TIME: Greater than 60 minutes was spent doing the history and physical , more than half the time in direct patient contact. [id number]/CPS #: [id number] MTDD
[2017-08-03] MEDS: Mometasone/Formoter 200/5 MDI INH SCH ×2 (07:27→20:07)
[2017-08-03] MEDS: Tiotropium CAP.INH* CAP.INH/18 MCG (USE ORDER SET !) INH SCH (07:27)
--- NOTE | 2017-08-03 07:40 | RAD ---
INDICATION: Paucity of stool. COMPARISON: Comparison is made with a prior study from November 19, 2010. TECHNIQUE: Frontal supine films of the abdomen were obtained. FINDINGS: The small bowel and colon appear nondistended. There is a moderate to large amount retained stool. There are multiple surgical clips in the right and left upper quadrants and surgical sutures in the left upper quadrant. IMPRESSION: 1. NO EVIDENCE FOR OBSTRUCTION. 2. MODERATE TO LARGE AMOUNT RETAINED STOOL. 3. POSTSURGICAL CHANGES.
--- NOTE | 2017-08-03 08:00 | RAD ---
CLINICAL HISTORY: Abdominal pain and hematuria COMPARISON: None TECHNIQUE: Noncontrast CT examination of the abdomen and pelvis from the lung bases through the initial tuberosities. FINDINGS: VISUALIZED LUNG BASES: There is coarse calcification and possibly stents at the coronary arteries. There is coarse calcification at the aortic ring. The visualized lung bases are grossly clear. There is no pleural effusion. ABDOMEN AND PELVIS: Evaluation of the solid organs and vasculature is limited without intravenous contrast. The liver, spleen, pancreas and adrenal glands are grossly normal in appearance. The gallbladder is surgically absent with clips in the gallbladder fossa. There are surgical clips along the medial margin of the spleen and adjacent to the stomach. The kidneys are normal in appearance without focal mass, calcification or signs of hydronephrosis. Evaluation of the gastrointestinal tract is limited without oral contrast. The small and large bowel are not distended. The appendix is not discretely identified, but there are no focal inflammatory changes of the base of the cecum characteristic of acute appendicitis. Gas and stool is seen filling the nondilated colon. Surgical material is seen at the right of midline small bowel. There is no gross retroperitoneal or mesenteric lymphadenopathy. There is a large diastases recti without appearance of tight herniation of the bowel. There is coarse calcification in the prostate gland. There is calcified atherosclerosis of the infrarenal abdominal aorta extending into the bilateral iliac arteries. The lower aorta and iliac arteries exhibit torturous curvature. Degenerative changes include multilevel loss of intervertebral disc height involving the lower thoracic and lumbar spine.There are no sinister bone lesions. IMPRESSION: 1. No renal calculi or signs of obstructive uropathy. 2. No CT evidence of acute gastrointestinal pathology within the limitations of a noncontrast CT examination. 3. Extensive chronic, degenerative and postsurgical changes described in the body the report.
[2017-08-03] MEDS ORDERED: Spiriva Inhaler DEVICE* 1 EACH DEVICE INH ONE (09:00)
[2017-08-03] MEDS ORDERED: Isosorbide Mononitrate ER TAB* 30 MG PO SCH (09:00)
[2017-08-03] MEDS ORDERED: Metoprolol Succinate XL TAB* 50 MG PO SCH (09:00)
[2017-08-03] MEDS ORDERED: Lisinopril TAB* 5 MG PO SCH (09:00)
[2017-08-03] MEDS ORDERED: Spironolactone TAB* 25 MG PO SCH (09:00)
[2017-08-03] MEDS: Insulin LISPRO* 1 UNITS UNIT SUBCUT SCH ×5 (09:42→21:15)
[2017-08-03] MEDS: Gabapentin CAP(*) 300 MG PO SCH ×3 (10:03→20:11)
[2017-08-03] MEDS: Montelukast Sodium TAB* 10 MG PO SCH (10:04)
[2017-08-03] MEDS: Aspirin TAB* 325 MG PO SCH (10:04)
[2017-08-03] MEDS: Fluticasone NASAL SPRAY 50MCG* 16 gm SPRAY BTL BOTH NARES SCH (10:05)
[2017-08-03] MEDS: Polyethylene Glycol 3350* 17 GM PACKET PO SCH ×3 (10:07→20:13)
[2017-08-03] MEDS ORDERED: Regadenoson* 0.4 MG/5 ML SYRINGE ONE (10:51)
[2017-08-03] MEDS ORDERED: Aminophylline IV* 25 MG/ML 10 ML VIAL ONE (10:51)
[2017-08-03] MEDS ORDERED: Simethicone TAB* 80 MG TAB.CHEW PO PRN (12:22)
[2017-08-03] MEDS ORDERED: Omeprazole CAP* 20 MG PO ONE (12:24)
[2017-08-03] MEDS ORDERED: Famotidine IV* 10 MG/ML 2 ML (20 mg) IV SLOW PU ONE (12:24)
[2017-08-03] MEDS: Magnesium Hydroxide LIQ* 30 ML UDC PO SCH ×2 (18:26→20:15)
--- NOTE | 2017-08-03 19:44 | PN ---
Subjective Date of Service: 08/03/17 Interval History: Patient seen and examined. C/O abdominal pain and dyspepsia and constipation, this is chronic for him. No chest pain, no SOB. Some nausea, no vomiting. Objective Active Medications: Acetaminophen (Tylenol Tab*) 650 mg PO Q4H PRN PRN Reason: FEVER/PAIN Last Admin: 08/03/17 06:10 Dose: 650 mg Al Hydrox/Mg Hydrox/Simethicone (Maalox Plus*) 30 ml PO Q6H PRN PRN Reason: INDIGESTION Albuterol/Ipratropium (Duoneb (Albuterol 2.5 Mg/Ipratropium 0.5 Mg)) 1 neb INH Q4H PRN PRN Reason: SOB/WHEEZING Aspirin (Aspirin Tab*) 325 mg PO DAILY [facility] Last Admin: 08/03/17 10:04 Dose: 325 mg Atorvastatin Calcium (Lipitor*) 40 mg PO BEDTIME [facility] Device (Nicotine Mouth Piece*) 1 each INH .USE WITH NICOTROL PRN PRN Reason: CRAVING Dextrose (D50w Syringe 50 Ml*) 12.5 gm IV PUSH .FOR FS < 60 - SS PRN PRN Reason: FS < 60 Docusate Sodium (Colace Cap*) 100 mg PO BID [facility] Last Admin: 08/03/17 10:02 Dose: 100 mg Fluticasone Propionate (Flonase Nasal [place] 50mcg*) 2 spray BOTH NARES DAILY [facility] Last Admin: 08/03/17 10:05 Dose: 2 spray Gabapentin (Neurontin Cap(*)) 600 mg PO TID [facility] Last Admin: 08/03/17 13:29 Dose: 600 mg Heparin Sodium (Porcine) (Heparin Vial(*)) 5,000 units SUBCUT Q8HR [facility] Last Admin: 08/03/17 13:29 Dose: 5,000 units Insulin Human Lispro (Humalog*) 0 units SUBCUT AC [facility] PRN Reason: Protocol Last Admin: 08/03/17 18:00 Dose: Not Given Insulin Human Lispro (Humalog*) 0 units SUBCUT ACHS [facility] PRN Reason: Protocol Last Admin: 08/03/17 17:59 Dose: Not Given Levothyroxine Sodium (Synthroid Tab*) 88 mcg PO DAILY@0600 [facility] Last Admin: 08/03/17 05:19 Dose: 88 mcg Magnesium Hydroxide (Milk Of [place] Liq*) 30 ml PO BID [facility] Last Admin: 08/03/17 18:26 Dose: 30 ml Metoprolol Succinate (Toprol Xl Tab*) 50 mg PO BID [facility] Last Admin: 08/03/17 12:39 Dose: Not Given Mometasone Furoate/Formoterol Fumar (Dulera 200/5 Mdi*) 2 puff INH BID [facility] Last Admin: 08/03/17 07:27 Dose: 2 puff Montelukast Sodium (Singulair Tab*) 10 mg PO DAILY [facility] Last Admin: 08/03/17 10:04 Dose: 10 mg Nicotine (Nicotine Inhaler*) 10 mg INH Q2H PRN PRN Reason: CRAVING Ondansetron HCl (Zofran Inj*) 4 mg IV Q4H PRN PRN Reason: NAUSEA/VOMITING Last Admin: 08/03/17 06:10 Dose: 4 mg Oxycodone/Acetaminophen (Percocet 5/325 Tab*) 1 tab PO Q4H PRN PRN Reason: Pain Last Admin: 08/03/17 02:17 Dose: 1 tab Polyethylene Glycol/Electrolytes (Miralax*) 17 gm PO 0800,2100 [facility] Last Admin: 08/03/17 13:29 Dose: 17 gm Senna (Senokot Tab*) 1 tab PO BID [facility] Last Admin: 08/03/17 10:02 Dose: 1 tab Simethicone (Mylicon Tab*) 80 mg PO Q6H PRN PRN Reason: DYSPEPSIA Last Admin: 08/03/17 13:29 Dose: 80 mg Tiotropium [place] (Spiriva Cap.Inh*) 1 cap INH DAILY [facility] Last Admin: 08/03/17 07:27 Dose: 1 cap Vital Signs - 8 hr 08/03/17 08/03/17 08/03/17 12:32 13:01 13:29 Temperature 98.4 F Pulse Rate 68 Respiratory 16 16 18 Rate Blood Pressure 120/78 (mmHg) O2 Sat by Pulse 96 Oximetry 08/03/17 08/03/17 15:40 16:16 Temperature 98.6 F Pulse Rate 75 Respiratory 24 16 Rate Blood Pressure 118/64 (mmHg) O2 Sat by Pulse 99 Oximetry Oxygen Devices in Use Now: None Eyes: No Scleral Icterus, PERRLA Ears/Nose/Mouth/Throat: Mucous Membranes Moist Neck: Trachea Midline Respiratory: Symmetrical Chest Expansion and Respiratory Effort - diminished bases Cardiovascular: NL Sounds; No Murmurs; No JVD, RRR Abdominal: - - large abdomen, surgical scarring noted, soft non-tender, +BS x4 Extremities: No Edema, No Clubbing, Cyanosis Neurological: Alert and Oriented x 3 Nutrition: Taking PO's Result Diagrams: 08/03/17 03:11 08/03/17 03:11 Diagnostic Imaging: Patient Name: WILLIS MEI Medical Record#: [id number] Ordering Physician: Samia Breen DO Acct.#: [id number] : 1945 Age: 71 Sex: M Location: [address] [place] [id number] MEDICAL/TELEMETRY Exam Date: 08/02/172343 ADM Status: ADM Doretha Order Information: CT ABD/PEL W/O Accession Number: [id number] CPT: 48284 CLINICAL HISTORY: Abdominal pain and hematuria COMPARISON: None TECHNIQUE: Noncontrast CT examination of the abdomen and pelvis from the lung bases through the initial tuberosities. FINDINGS: VISUALIZED LUNG BASES: There is coarse calcification and possibly stents at the coronary arteries. There is coarse calcification at the aortic ring. The visualized lung bases are grossly clear. There is no pleural effusion. ABDOMEN AND PELVIS: Evaluation of the solid organs and vasculature is limited without intravenous contrast. The liver, spleen, pancreas and adrenal glands are grossly normal in appearance. The gallbladder is surgically absent with clips in the gallbladder fossa. There are surgical clips along the medial margin of the spleen and adjacent to the stomach. The kidneys are normal in appearance without focal mass, calcification or signs of hydronephrosis. Evaluation of the gastrointestinal tract is limited without oral contrast. The small and large bowel are not distended. The appendix is not discretely identified, but there are no focal inflammatory changes of the base of the cecum characteristic of acute appendicitis. Gas and stool is seen filling the nondilated colon. Surgical material is seen at the right of midline small bowel. There is no gross retroperitoneal or mesenteric lymphadenopathy. There is a large diastases recti without appearance of tight herniation of the bowel. There is coarse calcification in the prostate gland. There is calcified atherosclerosis of the infrarenal abdominal aorta extending into the bilateral iliac arteries. The lower aorta and iliac arteries exhibit torturous curvature. Degenerative changes include multilevel loss of intervertebral disc height involving the lower thoracic and lumbar spine.There are no sinister bone lesions. IMPRESSION: 1. No renal calculi or signs of obstructive uropathy. 2. No CT evidence of acute gastrointestinal pathology within the limitations of a noncontrast CT examination. 3. Extensive chronic, degenerative and postsurgical changes described in the body the report. <Electronically signed by Yanick Starr MD in OV> 08/03/17 0757 1 of 2 Assess/Plan/Problems-Billing Assessment: This is a 71 year old male with epigastric and chest pain with long history of CAD and GI surgery that presented with chest pain and hematuria which is now resolved. Will have stress test given history of CAD, but responding to GI meds today. - Patient Problems (1) Constipation Code(s): K59.00 - CONSTIPATION, UNSPECIFIED SNOMED Code(s): 39486397 Comment: - Epigastric pain likely more r/t GI distress - PPI, maalox, bowel regimen - Monitor for stool output (2) CAD (coronary artery disease) Code(s): I25.10 - ATHSCL HEART DISEASE OF [place] CORONARY ARTERY W/O ANG PCTRS SNOMED Code(s): 24547596 Comment: - Had part 1 of stress test today, will complete in AM, NPO after midnight - No chest pain or SOB today (3) Hematuria Code(s): R31.9 - HEMATURIA, UNSPECIFIED SNOMED Code(s): 25241039 Comment: - Resolved today - Follow urine culture - CT abd/pelvis without stones (4) GERD (gastroesophageal reflux disease) Code(s): K21.9 - GASTRO-ESOPHAGEAL REFLUX DISEASE WITHOUT ESOPHAGITIS SNOMED Code(s): 137216065 Comment: - PPI (5) Diabetes Code(s): E11.9 - TYPE 2 DIABETES MELLITUS WITHOUT COMPLICATIONS SNOMED Code(s) : 16233892 Comment: - Lispro SS coverage (6) Hypothyroid Code(s): E03.9 - HYPOTHYROIDISM, UNSPECIFIED SNOMED Code(s): 62615252 Comment: - continue synthroid (7) COPD (chronic obstructive pulmonary disease) Code(s): J44.9 - CHRONIC OBSTRUCTIVE PULMONARY DISEASE, UNSPECIFIED SNOMED Code(s): 32703235 Comment: - Continue inhalers and home regimen, not in exacerbation - Contract Specialist on smoking cessation (8) DNR (do not resuscitate) (9) DVT prophylaxis Code(s): NMB0399 - SNOMED Code(s): 639439919 Comment: - HSQ Status and Disposition: Remain inpatient to complete stress. Should have GI referral at discharge.
[2017-08-03] MEDS: Atorvastatin* 40 MG TAB PO SCH (20:11)
[2017-08-03] MEDS: Metoprolol Succinate XL TAB* 50 MG PO SCH (21:26)
[2017-08-03] MEDS: Pantoprazole IV* 40 MG IV SCH (22:08)
[2017-08-03] MEDS ORDERED: Sodium Phosphate ADULT ENEMA* 118 ml bottle PR PRN (23:48)
[2017-08-03] MEDS ORDERED: NS 0.9% 500 ML* 500 ML IV ONE (23:48)
[2017-08-04 01:19] LABS: Urine Appearance Clear; Urine Blood 3+ (Negative); Urine Color Yellow; Urine Ketones Negative (Negative); Urine Protein Negative (Negative); Urine Specific Gravity 1.002 (1.010-1.030); Urine Urobilinogen Negative (Negative)
--- NOTE | 2017-08-04 01:53 | PN ---
Progress Note - Progress Note Date of Service: 08/04/17 Note: Called for hypotension and fever - repeat U/A (inital one not interpreted) shows pyuria - will start Cefepime.
[2017-08-04] MEDS: Cefepime 1 GM in Dextrose(*) 1 GM/50 ML BAG IV SCH ×2 (02:10→13:42)
[2017-08-04] MEDS: Heparin VIAL(*) 5000 UNITS/ML VIAL (FIVE THOUSAND) SUBCUT SCH ×3 (05:22→22:41)
[2017-08-04] MEDS: Levothyroxine TAB* 88 MCG TAB PO SCH (05:22)
[2017-08-04] MEDS: Insulin LISPRO* 1 UNITS UNIT SUBCUT SCH ×7 (07:33→20:29)
[2017-08-04] MEDS: Fluticasone NASAL SPRAY 50MCG* 16 gm SPRAY BTL BOTH NARES SCH (08:53)
[2017-08-04] MEDS: Polyethylene Glycol 3350* 17 GM PACKET PO SCH ×2 (08:53→20:57)
[2017-08-04] MEDS: Magnesium Hydroxide LIQ* 30 ML UDC PO SCH ×2 (08:53→20:58)
[2017-08-04] MEDS: Senna TAB PO SCH ×2 (08:53→20:59)
[2017-08-04] MEDS: Tiotropium CAP.INH* CAP.INH/18 MCG (USE ORDER SET !) INH SCH (08:53)
[2017-08-04] MEDS: Docusate CAP* 100 MG PO SCH ×2 (08:53→20:59)
[2017-08-04] MEDS: Metoprolol Succinate XL TAB* 50 MG PO SCH (08:53)
[2017-08-04] MEDS: Aspirin TAB* 325 MG PO SCH (08:53)
[2017-08-04] MEDS: Montelukast Sodium TAB* 10 MG PO SCH (08:53)
[2017-08-04] MEDS: Gabapentin CAP(*) 300 MG PO SCH ×3 (08:54→20:59)
[2017-08-04] MEDS: Mometasone/Formoter 200/5 MDI INH SCH ×2 (08:54→19:38)
[2017-08-04] MEDS ORDERED: Influenza VAC *QUAD* 2017-18* 0.5 ML SYRINGE IM ONE (10:30)
[2017-08-04] MEDS ORDERED: Pneumococcal *Vac Polyvalent 0.5 ML VIAL IM ONE (10:30)
--- NOTE | 2017-08-04 11:06 | RAD ---
HISTORY: Chest pain, shortness of breath, previous SC, hypertension, hyperlipidemia, obesity, family history of heart disease, abnormal EKG COMPARISONS: October 19, 2011 TECHNIQUE: A 2 day stress/rest myocardial perfusion study was performed, with pharmacologic stress. The stress portion was monitored by Dr. Marie. Gated SPECT imaging was performed, with CT-based attenuation correction DOSE: Stress: Technetium 99m tetrofosmin, 25.9 millicuries, injected at 11:12 AM on August 03, 2017 Rest: Technetium 99m tetrofosmin, 25.5 millicuries, injected at 6:50 AM on August 04, 2017 Pharmacologic agent: Lexiscan FINDINGS: CARDIAC MONITORING: Baseline EKG abnormalities including EKG assessment for ischemia EF: 58% TID: 1.02 MOTION: There is septal hypokinesia PERFUSION: There is a moderate size defect of the inferior wall extending to the apex. There is marginal reversibility. There is a small reversible defect of the distal anterior wall. OTHER: None IMPRESSION: 1. MODERATE SIZED FIXED DEFECT OF THE INFERIOR WALL SUGGESTIVE OF PREVIOUS INFARCT. THERE IS MARGINAL REVERSIBILITY WHICH MAY BE MISREGISTRATION ARTIFACT OR REPRESENT MARGINAL ISCHEMIA. 2. THERE IS A SMALL REVERSIBLE DEFECT OF THE DISTAL ANTERIOR WALL SUGGESTIVE OF ISCHEMIA. ASSESSMENT: INTERMEDIATE RISK. Based on imaging criteria from ACC/AHA 2002. Guideline Update for the Management of Patient's with Chronic Stable Angina, table 23. Noninvasive Risk Stratification. CPT II Codes: 3570F
--- NOTE | 2017-08-04 11:17 | PN ---
Subjective Date of Service: 08/04/17 Interval History: Mr. Craig reports that he still feels bloated and has some pain on the left side of his chest/abdomen. He feels gassy and is burping and passing flatus. He had a small bowel movement yesterday after having an enema but before that he had not had a bowel movement since 07/31/17. He notes that this is not entirely unusual for him since his multiple abdominal surgeries. Objective Active Medications: Acetaminophen (Tylenol Tab*) 650 mg PO Q4H PRN Al Hydrox/Mg Hydrox/Simethicone (Maalox Plus*) 30 ml PO Q6H PRN Albuterol/Ipratropium (Duoneb (Albuterol 2.5 Mg/Ipratropium 0.5 Mg)) 1 neb INH Q4H PRN Aspirin (Aspirin Tab*) 325 mg PO DAILY [facility] Atorvastatin Calcium (Lipitor*) 40 mg PO BEDTIME [facility] Device (Nicotine Mouth Piece*) 1 each INH .USE WITH NICOTROL PRN Dextrose (D50w Syringe 50 Ml*) 12.5 gm IV PUSH .FOR FS < 60 - SS PRN Docusate Sodium (Colace Cap*) 100 mg PO BID [facility] Fluticasone Propionate (Flonase Nasal [place] 50mcg*) 2 spray BOTH NARES DAILY [facility] Gabapentin (Neurontin Cap(*)) 600 mg PO TID [facility] Heparin Sodium (Porcine) (Heparin Vial(*)) 5,000 units SUBCUT Q8HR [facility] Cefepime HCl (Maxipime 1 Gm In Dextrose Duplex (*)) 1 gm in 50 mls @ 100 mls/ hr IV Q12H [facility] Insulin Human Lispro (Humalog*) 0 units SUBCUT AC [facility] Insulin Human Lispro (Humalog*) 0 units SUBCUT ACHS [facility] Levothyroxine Sodium (Synthroid Tab*) 88 mcg PO DAILY@0600 [facility] Magnesium Hydroxide (Milk Of [place] Liq*) 30 ml PO BID [facility] Metoprolol Succinate (Toprol Xl Tab*) 50 mg PO BID [facility] Mometasone Furoate/Formoterol Fumar (Dulera 200/5 Mdi*) 2 puff INH BID [facility] Montelukast Sodium (Singulair Tab*) 10 mg PO DAILY [facility] Nicotine (Nicotine Inhaler*) 10 mg INH Q2H PRN Ondansetron HCl (Zofran Inj*) 4 mg IV Q4H PRN Oxycodone/Acetaminophen (Percocet 5/325 Tab*) 1 tab PO Q4H PRN Pantoprazole Sodium (Protonix Iv*) 40 mg IV Q24H [facility] Polyethylene Glycol/Electrolytes (Miralax*) 17 gm PO 0800,2100 [facility] Senna (Senokot Tab*) 1 tab PO BID [facility] Simethicone (Mylicon Tab*) 80 mg PO Q6H PRN Sodium Biphosphate/Sodium Phosphate (Fleet Enema*) 1 bottle [place] DAILY PRN Tiotropium [place] (Spiriva Cap.Inh*) 1 cap INH DAILY [facility] Vital Signs: Temp Pulse Resp BP Pulse Ox 97.7 F 67 20 113/57 94 08/04/17 07:20 08/04/17 07:20 08/04/17 08:54 08/04/17 07:20 08/04/17 07:20 Oxygen Devices in Use Now: None Appearance: Male sitting up in chair in NAD Eyes: No Scleral Icterus Ears/Nose/Mouth/Throat: Mucous Membranes Moist Neck: Trachea Midline Respiratory: Symmetrical Chest Expansion and Respiratory Effort, Clear to Auscultation Cardiovascular: NL Sounds; No Murmurs; No JVD, No Edema Abdominal: - - Soft, distended, BS +, minimal tenderness Lymphatic: No Cervical Adenopathy Extremities: No Edema Skin: No Rash or Ulcers Neurological: Alert and Oriented x 3, NL Muscle Strength and Tone Nutrition: Taking PO's Result Diagrams: 08/03/17 03:11 08/03/17 03:11 Diagnostic Imaging: . Assess/Plan/Problems-Billing Assessment: Ms. Craig is a 71 year old male with PMH of CAD and GI surgery who was admitted on 08/03/17 with chest pain and hematuria which is now resolved. - Patient Problems (1) CAD (coronary artery disease) Comment: - Stress test complete, showing intermediate risk with fixed and reversible defects. Dr. Edwards to review. - No clear cardiac symptoms. No EKG changes concerning for ischemia. (2) Hematuria Comment: - Now with UTI with fever and hypotension overnight. - Continue cefepime. - Monitor urine cultures. (3) Constipation Comment: - Minimal BM yesterday. - CT abd on arrival without acute pathology or significant amount of stool. - Continue bowel regimen with simethicone, dulcolax supp added. (4) COPD (chronic obstructive pulmonary disease) Comment: - No evidence of exacerbation. - Continue home inhalers. - Counseled on smoking cessation. (5) Diabetes Comment: - BG well controlled. - Lispro SS coverage (6) GERD (gastroesophageal reflux disease) Comment: - Continue omeprazole. (7) Hyperlipidemia Comment: - Continue atorvastatin. (8) Hypothyroid Comment: - Continue levothyroxine. (9) DVT prophylaxis Comment: - HSQ (10) DNR (do not resuscitate) Comment: Status and Disposition: Inpatient. Should have GI referral at discharge. Anticipate discharge to home when medically stable.
[2017-08-04] MEDS ORDERED: Bisacodyl SUPP* 10 MG SUPP PR ONE (11:51)
[2017-08-04] MEDS: Nitroglycerin 0.1 mg/Hr PATCH* (2.5 MG) TRANSDERM SCH (14:59)
[2017-08-04] MEDS: Atorvastatin* 40 MG TAB PO SCH (20:59)
[2017-08-04] MEDS: Metoprolol Succinate XL TAB* 25 MG PO SCH (20:59)
[2017-08-04] MEDS ORDERED: Nitro Patch/OINT Remove PATCH OFF SCH (21:00)
[2017-08-04] MEDS: Pantoprazole IV* 40 MG IV SCH (22:42)
--- NOTE | 2017-08-04 23:27 | CONS ---
CC: Elin Madera NP; Krys Larios NP; Austin De Dios MD, [facility], [facility], [place], [place] * CARDIOLOGY CONSULTATION REPORT: DATE OF CONSULT: 08/04/17 INDICATION FOR CONSULT: The patient with history of known coronary artery disease, abnormal nuclear study, assess cardiac status and make recommendations. HISTORY OF PRESENT ILLNESS: The patient is a 71-year-old gentleman with an incredibly extensive past history of coronary artery disease. He presents now to the emergency room with increased episodes of burping, indigestion, and chest discomfort that he says he has with indigestion at times over the past few days. He states that sometimes he can get sweaty with this. It can occur with exertion and seems to be more prominent with exertion. He came to the emergency room. In the emergency room, his cardiac enzymes were found to be negative overnight and despite a DNR status, the hospitalist ordered a nuclear regadenoson stress test. The regadenoson stress test showed no definitive EKG changes of ischemia with a baseline abnormal EKG. The nuclear images were reported by Radiology and stated a moderate sized fixed defect to the inferior wall suggesting prior infarct with marginal reversibility, which may be misregistration artifact or represent marginal ischemia. There was also a small reversible defect to the distal anterior wall suggesting ischemia. The test was felt to be an intermediate risk with an ejection fraction of 58%. On note, I then personally reviewed the films myself and felt what the patient had was reversible ischemia to the mid posterolateral wall, as well as slightly to the apical region there was a fixed defect to the low posterolateral wall, which may be diaphragm interference. It should be noted that despite a fixed defect on both the stress and rest imaging, there was wall motion to the area on the gated portion of the test. In discussing his prior history, it is extremely extensive in nature. He has a history of a prior bypass surgery in the distant past with a ADORNO graft to the distal LAD, a vein graft to an acute marginal branch of the right coronary artery low lying after it turned on to the inferior surface of the heart. There was also a history of having had a vein graft to the obtuse marginal branch that was noted to be totally occluded in the past. He has had intervention into the circumflex back in 2012 at [facility] by Dr. De Dios with placement of a bare-metal stent in 2012 followed in 2013 with re-in-stent restenosis and placement of a drug-eluting stent into the circumflex, into the left main. He describes in his report being unable to deliver a stent in between 2 stents. In 2014, the patient had stenting of the insertion point of the vein graft to the acute marginal branch low lying with placement of a drug-eluting stent into the larger branch of the bifurcating acute marginal branch. Of note, he did see Dr. De Dios after that in the office, but since that time on, had not gone to see him initially because he was on house arrest and then just never went back to see him. He had planned to set up an appointment to see Dr. De Dios coming up, but never made it to and presented to the hospital first. The patient also had complained of blood in his urine on admission and apparently was noted to have a urinary tract infection and this has cleared since. PAST MEDICAL HISTORY: The patient has a history of coronary artery disease in addition to history of COPD, tobacco abuse, which he continues some 2 packs a day, chronic constipation as well as diabetes, hyperlipidemia, morbid obesity, gastroesophageal reflux and hypothyroidism. PAST SURGICAL HISTORY: Reportedly he has a surgical history of gastric stapling for peptic ulcer disease and history of ventral hernia repair with a mesh. MEDICATIONS: When I see him now, his current medications include: 1. Maalox p.r.n. 2. Albuterol p.r.n. 3. Aspirin 325 mg a day. 4. Atorvastatin 40 mg at bedtime. 5. He is on cefepime 1 g q. 12. 6. Nicotine mouthpiece, he uses. 7. He is on docusate 100 mg twice a day. 8. Flonase daily. 9. Gabapentin 600 mg 3 times a day. 10. Subcu heparin for DVT prophylaxis. 11. Humalog insulin, on sliding scale. 12. Levothyroxine 88 mcg a day. 13. Milk of magnesia 30 mg twice a day. 14. Metoprolol succinate 25 mg twice a day. 15. Dulera 2 puffs twice a day. 16. Singulair 10 mg a day. 17. Nicotine inhaler p.r.n. 18. Pantoprazole 40 mg IV q.24 hours. 19. MiraLax 17 g twice a day. 20. Senokot 1 tablet twice a day. 21. Spiriva 1 capsule daily. ALLERGIES: Reported allergy to LATEX, PENICILLIN and WHEAT. FAMILY HISTORY: Father had an AK at 76, mother with dementia. SOCIAL HISTORY: Currently lives with a girlfriend, who is his health proxy. He continues to smoke up to 2 packs a day. He states he does not use alcohol or illicit drugs. REVIEW OF SYSTEMS: As per the H and P with no additional findings. PHYSICAL EXAMINATION: When I see him, reveals a morbidly obese gentleman resting, in no acute distress. Vital signs reveal a blood pressure of 110/57, pulse is in the 60s, respirations are 20, O2 saturation 97% on room air. Neck is supple. I cannot appreciate an increased JVP. Carotid has fair upstroke and volume, there are no definitive bruits. Conjunctivae are pink, sclerae clear. Lungs reveal no accessory muscle usage. There are slightly diminished breath sounds but no active rales, rhonchi, or wheezes. Heart reveals no visible heaves. No palpable heaves or thrills. Normal S1, S2. Heart sounds in general are quite distant in nature. I cannot appreciate a significant systolic or diastolic murmur. Abdomen is morbidly obese. Extremities are heavy in nature bilaterally and distal pulses are diminished. Neuro: The patient is alert and oriented. Musculoskeletal: The patient walks with a cane. Psychiatric: The patient appears to be somewhat depressed. DIAGNOSTIC STUDIES/LAB DATA: Electrocardiogram on admission dated 08/02/17 timed 2100 revealed sinus rhythm, heart rate 67, KS interval 0.16, QRS is 0.15, QT 0.45, axis is -62 degrees. There was nonspecific ST segment changes in V2 and V3 with downsloping ST segment in I and aVL. There was poor R-wave progression across the precordium with Q waves in the inferior leads with a nonspecific interventricular conduction delay seen. Repeat EKG from 08/03/17 timed 6:53 a.m. showed similar findings. Laboratory results on admission, hemoglobin and hematocrit of 18.7 and 57 with a platelet count of 164,000. Repeat after hydration, the hemoglobin, hematocrit was 17.4 and 53. Initial sodium was 136, potassium 4.9, chloride 102 , bicarb 28, BUN of 14 and creatinine 1.22. On repeat after hydration, sodium was 135, potassium 4.5, BUN and creatinine was 15 and 1.1. His troponins were 0.01, 0.01, and 0.02 respectively. His total cholesterol was 130 with an LDL of 73, HDL of 38, triglycerides of 90. Chest x-ray report revealed no evidence of acute cardiopulmonary abnormalities. The abdomen and pelvic CT scan revealed no renal calculi or signs of obstructive uropathy. No CT evidence of acute gastrointestinal pathology within the limits of a noncontrast CT. There was extensive chronic degenerative and postsurgical changes reported. There was reportedly a large diastasis recti without appearance of tight herniation of the bowel. OVERALL ASSESSMENT: Mr. Pawel Craig presents with symptoms that sound somewhat GI in nature; however, the presence of the chest discomfort is disconcerting in nature. During the nuclear stress test, we did not see any significant ST segment changes of ischemia, but of concern is the fact that the nuclear images do show reversible ischemia to the posterolateral wall. He reportedly has fairly normal LV function by the study, but interestingly, in the past from an echocardiogram done at [facility], he had had an EF of 45% to 50% with suggestive findings of some hypokinesis to the inferior wall that might be more consistent with his EKG and current nuclear findings. Of note, I had an extensive discussion with the patient and initially he was a DNR, but he has rescinded that and is a full code. I then spoke directly with Dr. De Dios who is now with the cardiology group at [facility]. At this point, knowing that he is only on beta brandon therapy, he recommended trying to advance antianginal medications as tolerated and if he is stable, discharging him since he has normal LV function and his cardiac enzymes are negative, not suggesting the presence of a non-ST elevation myocardial infarction. He would personally set the patient up to be seen within 1 week of leaving the hospital and have further ongoing discussions with him regarding repeat study and probable intervention. Given the fact that we have learnt in the past, he is not easily if at all approachable from the groin area due to an incredibly tortuous aorta and iliac arteries, radial approach may be needed. Since he has a ADORNO graft, it may be difficult to do this from the right radial as Dr. De Dios did not perform the ADORNO injection last time, perhaps a left radial artery would have to be the approach if chosen. If; however, the patient continues to have significant problems and would necessitate transfer, I would clearly favor he be transferred to Dr. De Dios who has been involved on his last 3 interventions and knows all of the problems with approaching his disease and knows what attempts have and have not been successful and as such, would probably make the most sense to perform the procedure. This would clearly be a potentially high risk intervention given the problems that were had in the past. At this point in time, we will institute the nitroglycerin preparation on top of the beta brandon preparation and see if we can stabilize him enough to be able to go home and see Dr. De Dios as an outpatient. [id number]/[facility] #: [id number] JAN
[2017-08-05] MEDS: Acetaminophen TAB* 325 MG PO PRN (00:32)
[2017-08-05] MEDS ORDERED: NS 0.9% 500 ML* 500 ML IV ONE ×2 (00:34→02:37)
[2017-08-05] MEDS: Cefepime 1 GM in Dextrose(*) 1 GM/50 ML BAG IV SCH (01:34)
[2017-08-05] MEDS: Levothyroxine TAB* 88 MCG TAB PO SCH (05:43)
[2017-08-05] MEDS: Heparin VIAL(*) 5000 UNITS/ML VIAL (FIVE THOUSAND) SUBCUT SCH (05:44)
[2017-08-05] MEDS: Mometasone/Formoter 200/5 MDI INH SCH (08:26)
[2017-08-05] MEDS: Tiotropium CAP.INH* CAP.INH/18 MCG (USE ORDER SET !) INH SCH (08:27)
--- NOTE | 2017-08-05 08:47 | PN ---
Subjective Date of Service: 08/05/17 Interval History: Mr. Craig states that he feels very well and demands to be discharged today. He has ambulated on the unit without chest pain or SOB. Objective Active Medications: Acetaminophen (Tylenol Tab*) 650 mg PO Q4H PRN Al Hydrox/Mg Hydrox/Simethicone (Maalox Plus*) 30 ml PO Q6H PRN Albuterol/Ipratropium (Duoneb (Albuterol 2.5 Mg/Ipratropium 0.5 Mg)) 1 neb INH Q4H PRN Aspirin (Aspirin Tab*) 325 mg PO DAILY NAREN Atorvastatin Calcium (Lipitor*) 40 mg PO BEDTIME NAREN Device (Nicotine Mouth Piece*) 1 each INH .USE WITH NICOTROL PRN Dextrose (D50w Syringe 50 Ml*) 12.5 gm IV PUSH .FOR FS < 60 - SS PRN Docusate Sodium (Colace Cap*) 100 mg PO BID NAREN Fluticasone Propionate (Flonase Nasal [place] 50mcg*) 2 spray BOTH NARES DAILY NAREN Gabapentin (Neurontin Cap(*)) 600 mg PO TID NAREN Heparin Sodium (Porcine) (Heparin Vial(*)) 5,000 units SUBCUT Q8HR NAREN Cefepime HCl (Maxipime 1 Gm In Dextrose Duplex (*)) 1 gm in 50 mls @ 100 mls/ hr IV Q12H NAREN Insulin Human Lispro (Humalog*) 0 units SUBCUT AC NAREN Insulin Human Lispro (Humalog*) 0 units SUBCUT ACHS NAREN Levothyroxine Sodium (Synthroid Tab*) 88 mcg PO DAILY@0600 NAREN Magnesium Hydroxide (Milk Of Magnesia Liq*) 30 ml PO BID NAREN Metoprolol Succinate (Toprol Xl Tab*) 25 mg PO BID NAREN Mometasone Furoate/Formoterol Fumar (Dulera 200/5 Mdi*) 2 puff INH BID NAREN Montelukast Sodium (Singulair Tab*) 10 mg PO DAILY NAREN Nicotine (Nicotine Inhaler*) 10 mg INH Q2H PRN Nitroglycerin (Nitroglycerin 2.5 Mg Patch*) 1 patch TRANSDERM DAILY NAREN Ondansetron HCl (Zofran Inj*) 4 mg IV Q4H PRN Oxycodone/Acetaminophen (Percocet 5/325 Tab*) 1 tab PO Q4H PRN Pantoprazole Sodium (Protonix Iv*) 40 mg IV Q24H [facility] Pharmacy Profile Note (Nitro Patch/Oint Remove*) 1 note PATCH OFF 2100 [facility] Polyethylene Glycol/Electrolytes (Miralax*) 17 gm PO 0800,2100 [facility] Senna (Senokot Tab*) 1 tab PO BID NAREN Simethicone (Mylicon Tab*) 80 mg PO Q6H PRN Sodium Biphosphate/Sodium Phosphate (Fleet Enema*) 1 bottle OH DAILY PRN Tiotropium [place] (Spiriva Cap.Inh*) 1 cap INH DAILY NAREN Vital Signs: Temp Pulse Resp BP Pulse Ox 97.5 F 58 16 106/67 100 08/05/17 07:16 08/05/17 07:16 08/05/17 07:30 08/05/17 07:16 08/05/17 07:16 Oxygen Devices in Use Now: None Appearance: Male sitting up in chair in NAD Eyes: No Scleral Icterus Ears/Nose/Mouth/Throat: NL Teeth, Lips, Gums, Mucous Membranes Moist Neck: Trachea Midline Respiratory: Symmetrical Chest Expansion and Respiratory Effort, Clear to Auscultation Cardiovascular: NL Sounds; No Murmurs; No JVD, No Edema Abdominal: NL Sounds; No Tenderness; No Distention Lymphatic: No Cervical Adenopathy Extremities: No Edema Skin: No Rash or Ulcers Neurological: Alert and Oriented x 3, NL Muscle Strength and Tone Nutrition: Taking PO's Result Diagrams: 08/03/17 03:11 08/03/17 03:11 Diagnostic Imaging: . Assess/Plan/Problems-Billing Assessment: Ms. Craig is a 71 year old male with PMH of CAD and GI surgery who was admitted on 08/03/17 with chest pain and hematuria which is now resolved. - Patient Problems (1) CAD (coronary artery disease) Comment: - Stress test complete, showing intermediate risk with fixed and reversible defects. - No clear cardiac symptoms. No EKG changes concerning for ischemia. - Appreciate cardiology consultation. Plan to add nitroglycerin to metoprolol for second anti-anginal agent, patient tolerating today thus far. - Plan to follow up with outpatient hat finisher in [place]. (2) Hematuria Comment: - Now with UTI, no further fevers. - Switch to bactrim to complete 14 day course of antibiotics. - Recommend follow up with urology. (3) Constipation Comment: - Resolved with large BM yesterday. - CT abd on arrival without acute pathology or significant amount of stool. - Continue bowel regimen. (4) COPD (chronic obstructive pulmonary disease) Comment: - No evidence of exacerbation. - Continue home inhalers. - Counseled on smoking cessation. (5) Diabetes Comment: - BG well controlled. - Resume tradjenta. (6) GERD (gastroesophageal reflux disease) Comment: - Continue omeprazole. (7) Hyperlipidemia Comment: - Continue atorvastatin. (8) Hypothyroid Comment: - Continue levothyroxine. (9) DVT prophylaxis Comment: - HSQ (10) DNR (do not resuscitate) Comment: Status and Disposition: Inpatient. Discharge to home.
[2017-08-05] MEDS: Docusate CAP* 100 MG PO SCH (09:16)
[2017-08-05] MEDS: Magnesium Hydroxide LIQ* 30 ML UDC PO SCH (09:16)
[2017-08-05] MEDS: Aspirin TAB* 325 MG PO SCH (09:16)
[2017-08-05] MEDS: Senna TAB PO SCH (09:16)
[2017-08-05] MEDS: Gabapentin CAP(*) 300 MG PO SCH (09:16)
[2017-08-05] MEDS: Montelukast Sodium TAB* 10 MG PO SCH (09:16)
[2017-08-05] MEDS: Insulin LISPRO* 1 UNITS UNIT SUBCUT SCH ×4 (09:17→14:48)
[2017-08-05] MEDS: Polyethylene Glycol 3350* 17 GM PACKET PO SCH (09:17)
[2017-08-05] MEDS: Fluticasone NASAL SPRAY 50MCG* 16 gm SPRAY BTL BOTH NARES SCH (09:18)
[2017-08-05] MEDS: Metoprolol Succinate XL TAB* 25 MG PO SCH ×2 (09:19→10:13)
[2017-08-05] MEDS: Nitroglycerin 0.1 mg/Hr PATCH* (2.5 MG) TRANSDERM SCH ×2 (09:19→10:13)
[2017-08-05 13:15] VITALS: BP 98/56
--- NOTE | 2017-08-06 14:18 | DS ---
CC: Dr. De Dios, sales and service associate at [facility] * HOSPITAL MEDICINE DISCHARGE SUMMARY: DATE OF ADMISSION: 08/02/17. DATE OF DISCHARGE: 08/05/17. PRIMARY CARE PHYSICIAN: WARD Tim ATTENDING PHYSICIAN: Dr. Shahbaz Boudreaux * (dictation provided by Krys Larios NP). PRIMARY DIAGNOSES: 1. Chest pain, angina. 2. Abdominal pain, constipation. 3. Urinary tract infection. SECONDARY DIAGNOSES: 1. Coronary artery disease, status post coronary artery bypass graft and stent placement. 2. History of chronic obstructive pulmonary disease. 3. Tobacco abuse. 4. Constipation. 5. Diabetes. 6. Hyperlipidemia. 7. Morbid obesity. 8. Gastroesophageal reflux disease. 9. Hypothyroidism. 10. History of gastric stapling for peptic ulcer disease. 11. History of ventral hernia repair with mesh. MEDICATIONS AT THE TIME OF DISCHARGE: 1. Tiotropium 1 cap inhaled daily. 2. Ranitidine 150 mg p.o. daily. 3. Montelukast 10 mg p.o. daily. 4. Mometasone 1 spray nasal b.i.d. 5. Loratadine 10 mg p.o. daily. 6. Tradjenta 5 mg p.o. daily. 7. Levothyroxine 88 mcg p.o. daily. 8. Isosorbide ER 30 mg p.o. daily. 9. Ipratropium 0.03% as needed. 10. Gabapentin 600 mg p.o. t.i.d. 11. Fluticasone with salmeterol 250/50 one puff inhaled b.i.d. 12. Ferrous sulfate 325 mg p.o. t.i.d. 13. Ergocalciferol 50,000 units p.o. weekly. 14. Docusate 100 mg p.o. b.i.d. 15. Atorvastatin 40 mg p.o. at bedtime. 16. Aspirin 325 mg p.o. daily. 17. Albuterol with ipratropium q. 6 hours p.r.n. 18. Bactrim DS 1 tablet p.o. b.i.d. x14 days. 19. Metoprolol succinate 25 mg p.o. b.i.d. (new low dose). 20. Please hold Lasix, spironolactone, and lisinopril as the blood pressure has been low. The patient has been instructed to resume Lasix if his blood pressure is greater than 110/60. HOSPITAL COURSE: Mr. Craig is a 71-year-old male with a past medical history of coronary artery disease, diabetes, COPD, who presented to the hospital on with concerns for burning chest discomfort and burping with a distended abdomen. The patient states that he had had indigestion for several days. He also felt bloated and had not had a bowel movement for a couple of days. In the emergency room, he suddenly began to have hematuria and dysuria. Mr. Craig's workup included urinalysis, which initially showed 3+ blood, but the initial read and the rest of the UA was unable to be processed. He had no leukocytosis and no fever. He had an abdominal x-ray which showed the following : "No evidence of obstruction. Moderate to large amount of retained stool, postsurgical changes." He went on for an abdomen and pelvis CT which showed the following: "No renal calculi or signs of obstructive uropathy. No CT evidence of acute gastrointestinal pathology with limitations of noncontrast CT examination. Extensive chronic degenerative and postsurgical changes described in the body of the report." He had troponins which were negative on arrival and an EKG which showed no evidence of ischemia. For his chest discomfort and extensive cardiac history, he went on for a stress testing, which is read as follows: "Moderate-sized fixed defect of the inferior wall, suggestive of previous infarct. There is marginal reversibility , which may be misregistration artifact or represent marginal ischemia. There is small reversible defect of the distal anterior wall suggestive of ischemia." Because of the abnormal stress test, patient was seen in consult by Dr. Marie from Cardiology. He discussed the case at length with the patient and the patient's primary sales and service associate, Dr. De Dios in [place], who felt that the patient would benefit from an additional antianginal agent, as he was only on metoprolol while in the hospital. However, he has been noted to have low blood pressure with low heart rate at night with a heart rate running in the 50s and his systolic blood pressure is running in the low 80s. Because of this we have decreased his metoprolol and throughout the hospitalization held his lisinopril, Lasix, spironolactone, and isosorbide. His vitals have improved and we now recommend that he resume isosorbide and a lower dose metoprolol. He has been intrusted to resume Lasix if his blood pressure is greater than 110/ 60 at home. In terms of the hematuria that was seen in the emergency room, the patient had a fever on the second day of admission and low blood pressure as noted above. For this, he was started on cefepime for antibiotics. Urine culture shows E. coli, but the sensitivities are pending. I suspect that perhaps the urinary tract infection may have been driving some of this hypotension although he did not evidence of other signs of sepsis. The plan is for the patient to be discharged to home on 2 weeks of Bactrim therapy. I have also strongly encouraged him to follow up with the urologist in the next couple of weeks. Mr. Craig was admitted to the hospital. Because of his abdominal distention and constipation, he was started on a bowel regimen and with this has resolution of symptoms after multiple bowel movements. Mr. Craig is medically stable for discharge to home. He will be following up with his primary care physician and sales and service associate. DISPOSITION: To home. DIET: Low-fat, low-carb, low salt. ACTIVITY: As tolerated. FOLLOWUP PLANS: 1. Please follow up with Dr. De Dios. The patient will have an appointment next Tuesday. 2. Please follow up with the primary care physician. Patient should have an appointment arranged by our staff, but prior to leaving. TIME SPENT: Approximately 75 minutes was spent on the discharge of this patient , more than half the time was spent with the patient at the bedside reviewing the events leading up to this hospitalization, performing the physical examination and reviewing my plan of care. KRYS LARIOS NP [id number]/[facility] #: [id number] JAN
== END 2017-08-05 13:50 | disposition home or self-care (01) | DRG 303 ==
LOC: ED 20:16 → MEDTELE 23:53 → OBSVTOIN 08-03 15:00
PROVIDERS: ADMIT Pediatrics; ATTEND Pediatrics
DX: I25.119 Atherosclerotic heart disease of native coronary artery with unspecified angina pectoris (principal); I95.9 Hypotension, unspecified; I11.0 Hypertensive heart disease with heart failure; E66.01 Morbid (severe) obesity due to excess calories; D75.1 Secondary polycythemia; E11.9 Type 2 diabetes mellitus without complications; I50.9 Heart failure, unspecified; N39.0 Urinary tract infection, site not specified; Z68.41 Body mass index [BMI] 40.0-44.9, adult; R31.9 Hematuria, unspecified; E78.00 Pure hypercholesterolemia, unspecified; G47.30 Sleep apnea, unspecified; J44.9 Chronic obstructive pulmonary disease, unspecified; K59.09 Other constipation; K21.9 Gastro-esophageal reflux disease without esophagitis; N40.0 Benign prostatic hyperplasia without lower urinary tract symptoms; M19.90 Unspecified osteoarthritis, unspecified site; F32.9 Major depressive disorder, single episode, unspecified; E03.9 Hypothyroidism, unspecified; R00.1 Bradycardia, unspecified; B96.20 Unspecified Escherichia coli [E. coli] as the cause of diseases classified elsewhere; F17.210 Nicotine dependence, cigarettes, uncomplicated; Z66 Do not resuscitate; Z23 Encounter for immunization; Z88.0 Allergy status to penicillin; I25.2 Old myocardial infarction; Z95.1 Presence of aortocoronary bypass graft; Z91.018 Allergy to other foods; Z95.5 Presence of coronary angioplasty implant and graft; Z87.11 Personal history of peptic ulcer disease; Z82.49 Family history of ischemic heart disease and other diseases of the circulatory system; Z83.3 Family history of diabetes mellitus; Z91.040 Latex allergy status; Z79.82 Long term (current) use of aspirin
CPT/HCPCS: 36415; 71045; 74018; 74176; 78452; 80048; 80053; 80061; 81003; 81015; 83036; 83605; 84484; 85025; 85610; 85730; 87077; 87086; 87186; 90686; 90732; 93005; 93017; 94640; 99284; A9270-GY; A9502; G0378; J0280; J0692; J1644; J2405; J2785

== ENCOUNTER 2019-03-06 18:49 | Emergency (ER) | payer MEDICARE ==
--- NOTE | 2019-03-07 02:34 | ED ---
Lower Extremity - HPI Summary HPI Summary: This pt is a 73 Y/O M presenting to [facility] with a CC of R knee pain rated a 9/10 in severity after dropping a railroad tile on his leg 03/05/19. He states that he was kneeling when he got hit on the top of the knee. He states the pain has increased throughout the night which made him come into [facility] today. He states decreased ROM, pain about his knee. He denies any CP, SOB, headaches, and diaphoresis. He states that he takes Xarelto for AFIB. He states that he has increasing pain when he stands on his leg. He stated that he has a Hx of infection. He states that Ice has been decreasing the pain. He has a Hx of HTN and AFIB. - History of Current Complaint Chief Complaint: EDExtremityLower Stated Complaint: INJURED LEG PER PT Time Seen by Provider: 03/07/19 00:37 Hx Obtained From: Patient Mechanism Of Injury: Blunt Trauma - stated rail track fell on it Onset of Pain: Immediate Severity Initially: Severe Severity Currently: Severe Pain Intensity: 9 Pain Scale Used: 0-10 Numeric Timing: Constant Associated Signs And Symptoms: Positive: Swelling, Bruising, Knee Pain Aggravating Factor(s): Standing, Weight Bearing Alleviating Factor(s): Nothing - Allergies/Home Medications Allergies/Adverse Reactions: Allergies Allergy/AdvReac Type Severity Reaction Status Date / Time latex Allergy Hives Verified 08/02/17 20:31 Penicillins Allergy Anaphylatic Verified 08/02/17 20:31 Shock wheat Allergy Unknown Verified 08/02/17 20:31 Reaction Details Home Medications: Home Medications Baclofen 10 mg PO TID PRN 03/07/19 [History Confirmed 03/07/19] Clopidogrel TAB* [Plavix TAB*] 75 mg PO DAILY 03/07/19 [History Confirmed ] Lasix 80 mg PO DAILY 03/07/19 [History Confirmed 03/07/19] Lisinopril 2.5 MG- 2.5 mg PO DAILY 03/07/19 [History Confirmed 03/07/19] Nitroglycerin 0.4 MG/HR PATCH* 0.4 mg TOPICAL DAILY 03/07/19 [History Confirmed 03/07/19] Rivaroxaban TAB(*) [Xarelto 15 mg(*)] 15 mg PO DAILY 03/07/19 [History Confirmed 03/07/19] Spironolactone 50 mg PO DAILY 03/07/19 [History Confirmed 03/07/19] PMH/Surg Hx/FS Hx/Imm Hx Previously Healthy: Yes Endocrine/Hematology History: Reports: Hx Anticoagulant Therapy, Hx Diabetes - oral medication, diet Denies: Hx Blood Disorders, Hx Blood Transfusions, Hx Bone Marrow Disease, Hx Systemic Lupus Erythematosus, Hx Sickle Cell Disease, Hx Thyroid Disease, Hx Anemia, Hx Unexplained Bleeding, Other Endocrine/Hematological Disorders Cardiovascular History: Reports: Hx Angina - mi this year, Hx Angioplasty - stents in [place],, Hx Congestive Heart Failure, Hx Hypercholesterolemia, Hx Hypertension, Other Cardiovascular Problems/Disorders - SVT; Bypass x 4 2005 Denies: Hx Aneurysm, Hx Cardiac Arrest - positive for mi in past, Hx Cardiomegaly, Hx Congenital Heart Disease, Hx Coronary Artery Disease, Hx Deep Vein Thrombosis, Hx Embolism Respiratory History: Reports: Hx Asthma, Hx Chronic Obstructive Pulmonary Disease (COPD), Hx Sleep Apnea - HX CPAP/NO LONGER USES, Other Respiratory Problems/Disorders GI History: Reports: Hx Gastroesophageal Reflux Disease, Other GI Disorders - CONSTIPATION, PUD, gastric cristy/HERNIA ON RT SIDE Denies: Hx Ulcer History: Reports: Hx Benign Prostatic Hyperplasia, Other Problems/ Disorders - BPH Denies: Hx Renal Disease Musculoskeletal History: Reports: Hx Arthritis, Hx Back Problems, Other Musculoskeletal History - chain saw injury to right lower Sensory History: Reports: Hx Contacts or Glasses Denies: Hx Cataracts, Hx Eye Injury, Hx Eye Prosthesis, Hx Glaucoma, Hx Legally Blind, Hx Macular Degeneration, Hx Vision Problem, Hx Deafness, Hx Hearing Aid, Hx Hearing Problem, Other Sensory Impairments Opthamlomology History: Reports: Hx Contacts or Glasses Denies: Hx Cataracts, Hx Eye Injury, Hx Eye Prosthesis, Hx Glaucoma, Hx Legally Blind, Hx Macular Degeneration, Hx Vision Problem, Other Sensory Impairments Psychiatric History: Reports: Hx Depression - Surgical History Surgery Procedure, Year, and Place: CARDIAC STENTS, CABG 2004; Abdominal exploratory surgery at age 17; gastric cristy. grafting to right lower extremity after traumatic injury Hx Anesthesia Reactions: No Infectious Disease History: No Infectious Disease History: Denies: Hx Clostridium Difficile, Hx Hepatitis, Hx Human Immunodeficiency Virus (HIV), Hx of Known/Suspected MRSA, Hx Shingles, Hx Tuberculosis, Hx Known/ Suspected VRE, Hx Known/Suspected VRSA, History Other Infectious Disease, Traveled Outside the [place] in Last 30 Days - Family History Known Family History: Positive: Cardiac Disease, Hypertension, Diabetes - Social History Alcohol Use: None Substance Use Type: Reports: None Hx Tobacco Use: Yes Smoking Status (MU): Heavy Every Day Tobacco Smoker Type: Cigarettes Review of Systems - ROS Summary Review of Systems Summary: Constitutional: Well-developed, Well-nourished, Alert. (-) Distressed Skin: Warm, Dry HENT: Normocephalic; Atraumatic Eyes: Conjunctiva normal Neck: Musculoskeletal ROM normal neck. (-) JVD, (-) Stridor, (-) Nuchal rigidity Cardio: Rhythm regular, rate normal, Heart sounds normal; Intact distal pulses; Radial pulses are 2+ and symmetric. (-) Murmur Pulmonary/Chest wall: Effort normal. (-) Respiratory distress, (-) Wheezes, (-) Rales, Trace wheezing at the end of his expiratory phase, breathing comfortably and currently at 96 % O2 Abd: Soft, (-) tenderness, (-) Distension, (-) Guarding, (-) Rebound Musculoskeletal: 10-12 cm by 8cm hematoma to the medial aspect of the distal left thigh that involves the medial aspect of the R knee. Appropriately tender, bilateral lower extremity edema Lymph: (-) Cervical adenopathy Neuro: Alert, Oriented x3 Psych: Mood and affect Normal Negative: Skin Diaphoresis Negative: Chest Pain Negative: Shortness Of Breath Positive: Myalgia - L knee pain , Decreased ROM - L knee Skin: Other - bruising the medial aspect of the L knee Negative: Headache All Other Systems Reviewed And Are Negative: Yes Physical Exam Vital Signs On Initial Exam: Initial Vitals Temp Pulse Resp BP Pulse Ox 97.2 F 74 18 105/73 95 03/06/19 19:00 03/06/19 19:00 03/06/19 19:00 03/06/19 19:00 03/06/19 19:00 Diagnostics - Vital Signs Vital Signs Temp Pulse Resp BP Pulse Ox 03/07/19 02:00 61 19 95 03/07/19 01:00 19 03/07/19 00:28 11 03/06/19 23:31 97.8 F 54 20 118/72 95 09/17/19 21:06 97.6 F 54 20 115/76 94 03/06/19 19:00 97.2 F 74 18 105/73 95 - Laboratory Lab Statement: Any lab studies that have been ordered have been reviewed, and results considered in the medical decision making process. - Radiology Knee X-Ray Radiology Interpretation Completed By: ED Physician Summary of Radiographic Findings: No acute fracture of break. Pending offical review. Lower Extremity Course/Dx - Course Course Of Treatment: This pt is a 73 Y/O M presenting to [facility] with a CC of R knee pain rated a 9/10 in severity after dropping a railroad tile on his leg . He states that he was kneeling when he got hit on the top of the knee. He states the pain has increased throughout the night which made him come into [facility] today. His PE found that he had a 0-12 cm by 8cm hematoma to the medial aspect of the distal left thigh that involves the medial aspect of the R knee. His Knee X-Ray showed no abnormal findings. He will be discharged home with a Dx of a knee contusion and hematoma. - Diagnoses Provider Diagnoses: Knee contusion, Hematoma Discharge ED - Sign-Out/Discharge Documenting (check all that apply): Patient Departure - discharge Patient Received Moderate/Deep Sedation with Procedure: No - Discharge Plan Condition: Stable Disposition: HOME Patient Education Materials: Knee Pain (ED), Hematoma (ED) Referrals: Elin Lopez RN [Primary Care Provider] - - Billing Disposition and Condition Condition: STABLE Disposition: Home - Attestation Statements Document Initiated by Laina: Yes Documenting Scribe: Tong Mccartney Provider For Whom Laina is Documenting (Include Credential): Vince Abreu MD Scribnieves Attestation: Tong Malcolm scribed for Vince Abreu MD on 03/07/19 at 0756. Scribe Documentation Reviewed: Yes Provider Attestation: The documentation as recorded by the Tong fernandes accurately reflects the service I personally performed and the decisions made by me, Vince Abreu MD Status of Scribe Document: Viewed
[2019-03-07 03:16] VITALS: BP 117/67
== END 2019-03-07 03:08 | disposition home or self-care (01) ==
LOC: ED 18:49
DX: S80.01XA Contusion of right knee, initial encounter (principal); W22.8XXA Striking against or struck by other objects, initial encounter; Y92.9 Unspecified place or not applicable; I10 Essential (primary) hypertension; I48.91 Unspecified atrial fibrillation; Z88.0 Allergy status to penicillin; Z79.899 Other long term (current) drug therapy; Z79.01 Long term (current) use of anticoagulants; J44.9 Chronic obstructive pulmonary disease, unspecified; K21.9 Gastro-esophageal reflux disease without esophagitis; F17.210 Nicotine dependence, cigarettes, uncomplicated; E11.9 Type 2 diabetes mellitus without complications; Z79.84 Long term (current) use of oral hypoglycemic drugs
CPT/HCPCS: 99282

== ENCOUNTER 2019-03-16 08:39 | Emergency (ER) | payer MEDICARE ==
[2019-03-16 08:52] VITALS: BP 119/59
--- NOTE | 2019-03-16 10:14 | UC ---
Lower Extremity/Ankle HPI - HPI Summary HPI Summary: 73 yo male presents accompanied by his daughter with LEFT left pain. Pt tells me that about 10 days ago he dropped a railroad tile on his LEFT thigh while working. He developed significant bruising and had increased pain later that day and went to the ER where XRs of his left knee were performed and soft tissue swelling noted. He was discharged with dx of contusion and hematoma. Since that time he tells me that the pain and bruising in his thigh and been slowly improving, but over the last 3 days has noticed increasing swelling to the entire lower leg with pain around his ankle. He ambulates with a cane at baseline, but this new pain is making it difficult to walk. He denies new injury. Denies fevers, chills, SOB, chest pain, numbness, tingling, pallor or coldness to the leg. He has a very extensive PMHx as below. - History of Current Complaint Chief Complaint: UCSkin Stated Complaint: LEG COMPLAINT Time Seen by Provider: 03/16/19 10:12 Hx Obtained From: Patient, Family/Automation Tester Onset/Duration: Gradual Onset Severity Initially: Moderate Severity Currently: Severe Pain Intensity: 9 Pain Scale Used: 0-10 Numeric - Allergies/Home Medications Allergies/Adverse Reactions: Allergies Allergy/AdvReac Type Severity Reaction Status Date / Time latex Allergy Hives Verified 03/16/19 08:53 morphine Allergy Hives Verified 03/16/19 08:53 Penicillins Allergy Anaphylatic Verified 03/16/19 08:53 Shock wheat Allergy Unknown Verified 03/16/19 08:53 Reaction Details PMH/Surg Hx/FS Hx/Imm Hx Endocrine History: Dyslipidemia Cardiovascular History: Cardiac Disease, Hypertension, Myocardial Infarction, Atrial Fibrillation Respiratory History: COPD Neurological History: CVA Other History Of: Anticoagulant Therapy - Surgical History Surgical History: Yes Surgery Procedure, Year, and Place: CARDIAC STENTS, CABG 2004; Abdominal exploratory surgery at age 17; gastric cristy. grafting to right lower extremity after traumatic injury - Family History Known Family History: Positive: Cardiac Disease, Hypertension, Diabetes - Social History Alcohol Use: None Substance Use Type: None Smoking Status (MU): Heavy Every Day Tobacco Smoker Type: Cigarettes - Immunization History Most Recent Influenza Vaccination: 2011 Most Recent Tetanus Shot: UNKNOWN Most Recent Pneumonia Vaccination: none Review of Systems All Other Systems Reviewed And Are Negative: No Constitutional: Positive: Negative Skin: Positive: Rash Respiratory: Positive: Negative Cardiovascular: Positive: Negative Neurovascular: Positive: Negative Musculoskeletal: Positive: Other: - Left ankle and thigh pain Neurological: Positive: Negative Psychological: Positive: Negative Physical Exam - Summary Physical Exam Summary: GENERAL: NAD. WDWN. No pain distress. SKIN: See MSK CHEST: No accessory muscle use. Breathing comfortably and in no distress. CV: Pulses intact PT and DP. Cap refill <2seconds MSK: LEFT THIGH: anteromedial aspect with healing hematoma and ecchymosis. Mild TTP. LEFT LOWER LEG: Mild TTP about ankle. FROM. Strength 5/5. Moderate edema about lower leg and foot. Slight redness to the skin of the distal lower leg without warmth or open wound. No streaking. Negative sunny sign. NEURO: Alert. Sensations intact and symmetric B/L LEs PSYCH: Age appropriate behavior. Triage Information Reviewed: Yes Vital Signs: Initial Vital Signs Temp 98 F 03/16/19 08:49 Pulse 55 03/16/19 08:49 Resp 16 03/16/19 08:49 BP 119/59 03/16/19 08:49 Pulse Ox 99 03/16/19 08:49 Vital Signs Reviewed: Yes Diagnostics - Radiology US lower leg Radiology Interpretation Completed By: Radiologist Summary of Radiographic Findings: IMPRESSION: 1. NO LEFT LOWER EXTREMITY DEEP VEIN THROMBOSIS 2. 6.4 CM FLUID COLLECTION OF THE MEDIAL THIGH, LIKELY HEMATOMA GIVEN THE HISTORY OF TRAUMA. Lower Extremity Course/Dx - Course Course Of Treatment: US results as above. Hematoma of thigh appear to be healing well. I suspect his left leg pain and swelling are due to him continuing to ambulate and work and not keeping his leg elevated properly - I strongly encouraged this today. He also appears to have an early cellulitis of the left lower leg - will place him on bactrim for this as he states he has a hx of MRSA. Strongly advised to f/u with his PCP on tuesday for a recheck or if he develops worsening symptoms, fever, chills, fatigue, or increased pain to go directly to the ER. - Differential Dx/Diagnosis Provider Diagnosis: Left leg swelling, Left leg pain Discharge ED - Sign-Out/Discharge Documenting (check all that apply): Patient Departure All imaging exams completed and their final reports reviewed: Yes - Discharge Plan Condition: Stable Disposition: HOME Prescriptions: Sulfamethox/Trimethoprim DS* [Bactrim DS 800/160 TAB*] 1 tab PO BID #14 tab Patient Education Materials: Cellulitis (DC) Referrals: Elin Lopez RN [Primary Care Provider] - 03/19/19 Additional Instructions: If you develop a fever, shortness of breath, chest pain, new or worsening symptoms - please call your PCP or go to the ED immediately. 1) Rest and elevate your leg throughout the day to reduce pain and swelling. 2) Take your antibiotic as directed 3) It is very important that you schedule an appointment with your primary doctor for Tuesday (3 days) for a recheck of your leg - Billing Disposition and Condition Condition: STABLE Disposition: Home
== END 2019-03-16 11:50 | disposition home or self-care (01) ==
LOC: UCEAST 08:39
DX: M79.652 Pain in left thigh (principal); M79.89 Other specified soft tissue disorders; Z86.14 Personal history of Methicillin resistant Staphylococcus aureus infection; I10 Essential (primary) hypertension; E78.5 Hyperlipidemia, unspecified; I25.2 Old myocardial infarction; I48.91 Unspecified atrial fibrillation; Z79.01 Long term (current) use of anticoagulants; J44.9 Chronic obstructive pulmonary disease, unspecified; Z86.73 Personal history of transient ischemic attack (TIA), and cerebral infarction without residual deficits; F17.210 Nicotine dependence, cigarettes, uncomplicated
CPT/HCPCS: 99212; G0463

== ENCOUNTER 2019-03-18 19:48 | Emergency (ER) | payer MEDICARE ==
[2019-03-18] MEDS ORDERED: Clindamycin 600 MG/D5W BAG(*) 600 MG/50 ML BAG IV ONE (23:01)
[2019-03-18 23:05] LABS: ABS Basophils 0.1 10^3/ul (0-0.2); ABS Eosinophils 0.2 10^3/ul (0-0.6); ABS Lymphocytes 1.3 10^3/ul (1.0-4.8); ABS Monocytes 0.7 10^3/ul (0-0.8); ABS Neutrophils 3.4 10^3/ul (1.5-7.7); Eosinophil % 4.2 %; Hematocrit 46 % (42-52); Hemoglobin 15.2 g/dL (14.0-18.0); Lymphocyte % 23.5 %; Mean Corpuscular HGB Conc 33 g/dL (31-36); Mean Corpuscular Hemoglobin 32 pg (27-31); Mean Corpuscular Volume 97 fL (80-94); Mean Platelet Volume 8.2 fL (7.4-10.4); Nucleated Red Blood Cells % 0.1; Platelet Count 188 10^3/uL (150-450); Red Blood Count 4.74 10^6 /uL (4.18-5.48); Red Cell Distribution Width 16 % (10-15); White Blood Count 5.6 10^3/uL (3.5-10.8)
[2019-03-18 23:20] LABS: Albumin 3.9 g/dL (3.2-5.2); Albumin/Globulin Ratio 1.3 (1-3); BUN/Creatinine Ratio 11.9 (8-20); C Reactive Protein 12.33 mg/L (<8.01); Calcium 8.7 mg/dL (8.6-10.3); EGFR African American 31.7 (>60); EGFR Non-African American 26.2 (>60); Globulin 2.9 g/dL (2-4); Potassium 4.2 mmol/L (3.5-5.0); Total Bilirubin 0.8 mg/dL (0.2-1.0); Total Protein 6.8 g/dL (6.4-8.9)
[2019-03-18] MEDS ORDERED: Furosemide IV* 10 MG/ML 2 ML VIAL (20 MG) IV SLOW PU ONE (23:49)
[2019-03-19] MEDS ORDERED: Clindamycin CAP* 150 MG PO ONE (00:03)
--- NOTE | 2019-03-19 00:06 | ED ---
Lower Extremity - HPI Summary HPI Summary: 73 year old male presents with cellulitis left leg the past couple days. He states that he has a hematoma on left thigh for the past week. He was seen at urgent care on Tuesday had an negative ultrasound for DVT. He was started on Bactrim. Has taken 2 days worth of Bactrim. He states the redness has not spread. He's noticed more swelling into his legs. has swelling that is equal in both legs. He is having a history of CHF. He states he's been increasing his Lasix on his own. He states he is not able to keep his legs elevated due to pain. - History of Current Complaint Chief Complaint: EDExtremityLower Stated Complaint: LEG PAIN PER PT Time Seen by Provider: 03/18/19 22:31 Pain Intensity: 9 - Allergies/Home Medications Allergies/Adverse Reactions: Allergies Allergy/AdvReac Type Severity Reaction Status Date / Time latex Allergy Hives Verified 03/18/19 20:09 morphine Allergy Hives Verified 03/18/19 20:09 Penicillins Allergy Anaphylatic Verified 03/18/19 20:09 Shock wheat Allergy Unknown Verified 03/18/19 20:09 Reaction Details PMH/Surg Hx/FS Hx/Imm Hx Endocrine/Hematology History: Reports: Hx Anticoagulant Therapy, Hx Diabetes - oral medication, diet Denies: Hx Blood Disorders, Hx Blood Transfusions, Hx Bone Marrow Disease, Hx Systemic Lupus Erythematosus, Hx Sickle Cell Disease, Hx Thyroid Disease, Hx Anemia, Hx Unexplained Bleeding, Other Endocrine/Hematological Disorders Cardiovascular History: Reports: Hx Angina - mi this year, Hx Angioplasty - stents in [place],, Hx Congestive Heart Failure, Hx Hypercholesterolemia, Hx Hypertension, Other Cardiovascular Problems/Disorders - SVT; Bypass x 4 2005 Denies: Hx Aneurysm, Hx Cardiac Arrest - positive for mi in past, Hx Cardiomegaly, Hx Congenital Heart Disease, Hx Coronary Artery Disease, Hx Deep Vein Thrombosis, Hx Embolism Respiratory History: Reports: Hx Asthma, Hx Chronic Obstructive Pulmonary Disease (COPD), Hx Sleep Apnea - HX CPAP/NO LONGER USES, Other Respiratory Problems/Disorders GI History: Reports: Hx Gastroesophageal Reflux Disease, Other GI Disorders - CONSTIPATION, PUD, gastric cristy/HERNIA ON RT SIDE Denies: Hx Ulcer History: Reports: Hx Benign Prostatic Hyperplasia, Other Problems/ Disorders - BPH Denies: Hx Renal Disease Musculoskeletal History: Reports: Hx Arthritis, Hx Back Problems, Other Musculoskeletal History - chain saw injury to right lower Sensory History: Reports: Hx Contacts or Glasses Denies: Hx Cataracts, Hx Eye Injury, Hx Eye Prosthesis, Hx Glaucoma, Hx Legally Blind, Hx Macular Degeneration, Hx Vision Problem, Hx Deafness, Hx Hearing Aid, Hx Hearing Problem, Other Sensory Impairments Opthamlomology History: Reports: Hx Contacts or Glasses Denies: Hx Cataracts, Hx Eye Injury, Hx Eye Prosthesis, Hx Glaucoma, Hx Legally Blind, Hx Macular Degeneration, Hx Vision Problem, Other Sensory Impairments Psychiatric History: Reports: Hx Depression - Surgical History Surgery Procedure, Year, and Place: CARDIAC STENTS, CABG 2004; Abdominal exploratory surgery at age 17; gastric cristy. grafting to right lower extremity after traumatic injury Hx Anesthesia Reactions: No Infectious Disease History: Yes Infectious Disease History: Denies: Hx Clostridium Difficile, Hx Hepatitis, Hx Human Immunodeficiency Virus (HIV), Hx of Known/Suspected MRSA, Hx Shingles, Hx Tuberculosis, Hx Known/ Suspected VRE, Hx Known/Suspected VRSA, History Other Infectious Disease, Traveled Outside the [place] in Last 30 Days - Family History Known Family History: Positive: Cardiac Disease, Hypertension, Diabetes - Social History Alcohol Use: None Substance Use Type: Reports: None Hx Tobacco Use: Yes Smoking Status (MU): Heavy Every Day Tobacco Smoker Type: Cigarettes Review of Systems Negative: Fever Negative: Chest Pain Negative: Shortness Of Breath Positive: Rash All Other Systems Reviewed And Are Negative: Yes Physical Exam Triage Information Reviewed: Yes Vital Signs On Initial Exam: Initial Vitals Temp Pulse Resp BP Pulse Ox 98.4 F 75 18 102/61 94 03/18/19 20:05 03/18/19 20:05 03/18/19 20:05 03/18/19 20:05 03/18/19 20:05 Vital Signs Reviewed: Yes Appearance: Positive: Well-Appearing Skin: Positive: Warm, Dry, Other - erythema to left longoria with warmth, hematoma to left thigh with erythema and warmth Head/Face: Positive: Normal Head/Face Inspection Eyes: Positive: Normal, Conjunctiva Clear ENT: Positive: Pharynx normal Respiratory/Lung Sounds: Positive: Clear to Auscultation, Breath Sounds Present Cardiovascular: Positive: Normal, RRR Musculoskeletal: Positive: Edema Left, Edema Right, Other - good pulses Neurological: Positive: Normal Psychiatric: Positive: Normal Diagnostics - Vital Signs Vital Signs Temp Pulse Resp BP Pulse Ox 03/18/19 23:37 59 19 101/57 92 03/18/19 23:07 62 20 94/56 92 03/18/19 23:00 60 22 92 03/18/19 22:37 62 17 101/54 92 03/18/19 22:36 67 40 94 03/18/19 22:24 98.2 F 60 18 78/45 92 03/18/19 20:05 98.4 F 75 18 102/61 94 - Laboratory Lab Results: Lab Results 03/18/19 03/18/19 03/18/19 Range/Units 22:54 22:54 22:54 WBC 5.6 (3.5-10.8) 10^3/uL RBC 4.74 (4.18-5.48) 10^6 /uL Hgb 15.2 (14.0-18.0) g/dL Hct 46 (42-52) % MCV 97 H (80-94) fL MCH 32 H (27-31) pg MCHC 33 (31-36) g/dL RDW 16 H (10-15) % Plt Count 188 (150-450) 10^3/uL MPV 8.2 (7.4-10.4) fL Neut % (Auto) 59.3 % Lymph % (Auto) 23.5 % [place] % (Auto) 12.1 % Eos % (Auto) 4.2 % Baso % (Auto) 0.9 % Absolute Neuts (auto) 3.4 (1.5-7.7) 10^3/ul Absolute Lymphs (auto) 1.3 (1.0-4.8) 10^3/ul Absolute Monos (auto) 0.7 (0-0.8) 10^3/ul Absolute Eos (auto) 0.2 (0-0.6) 10^3/ul Absolute Basos (auto) 0.1 (0-0.2) 10^3/ul Absolute Nucleated RBC 0.0 10^3/ul Nucleated RBC % 0.1 Sodium 134 L (135-145) mmol/L Potassium 4.2 (3.5-5.0) mmol/L Chloride 101 (101-111) mmol/L Carbon Dioxide 25 (22-32) mmol/L Anion Gap 8 (2-11) mmol/L BUN 29 H (6-24) mg/dL Creatinine 2.44 H (0.67-1.17) mg/dL Est GFR ( Amer) 31.7 (>60) Est GFR (Non-Af Amer) 26.2 (>60) BUN/Creatinine Ratio 11.9 (8-20) Glucose 91 (70-100) mg/dL Lactic Acid 0.8 (0.5-2.0) mmol/L Calcium 8.7 (8.6-10.3) mg/dL Total Bilirubin 0.80 (0.2-1.0) mg/dL AST 16 (13-39) U/L ALT 13 (7-52) U/L Alkaline Phosphatase 82 (34-104) U/L C-Reactive Protein 12.33 H (<8.01) mg/L B-Natriuretic Peptide (<=100) pg/mL Total Protein 6.8 (6.4-8.9) g/dL Albumin 3.9 (3.2-5.2) g/dL Globulin 2.9 (2-4) g/dL Albumin/Globulin Ratio 1.3 (1-3) 03/18/19 Range/Units 22:54 WBC (3.5-10.8) 10^3/uL RBC (4.18-5.48) 10^6 /uL Hgb (14.0-18.0) g/dL Hct (42-52) % MCV (80-94) fL MCH (27-31) pg MCHC (31-36) g/dL RDW (10-15) % Plt Count (150-450) 10^3/uL MPV (7.4-10.4) fL Neut % (Auto) % Lymph % (Auto) % [place] % (Auto) % Eos % (Auto) % Baso % (Auto) % Absolute Neuts (auto) (1.5-7.7) 10^3/ul Absolute Lymphs (auto) (1.0-4.8) 10^3/ul Absolute Monos (auto) (0-0.8) 10^3/ul Absolute Eos (auto) (0-0.6) 10^3/ul Absolute Basos (auto) (0-0.2) 10^3/ul Absolute Nucleated RBC 10^3/ul Nucleated RBC % Sodium (135-145) mmol/L Potassium (3.5-5.0) mmol/L Chloride (101-111) mmol/L Carbon Dioxide (22-32) mmol/L Anion Gap (2-11) mmol/L BUN (6-24) mg/dL Creatinine (0.67-1.17) mg/dL Est GFR ( Amer) (>60) Est GFR (Non-Af Amer) (>60) BUN/Creatinine Ratio (8-20) Glucose (70-100) mg/dL Lactic Acid (0.5-2.0) mmol/L Calcium (8.6-10.3) mg/dL Total Bilirubin (0.2-1.0) mg/dL AST (13-39) U/L ALT (7-52) U/L Alkaline Phosphatase (34-104) U/L C-Reactive Protein (<8.01) mg/L B-Natriuretic Peptide 74 (<=100) pg/mL Total Protein (6.4-8.9) g/dL Albumin (3.2-5.2) g/dL Globulin (2-4) g/dL Albumin/Globulin Ratio (1-3) Result Diagrams: 03/18/19 22:54 03/18/19 22:54 Lab Statement: Any lab studies that have been ordered have been reviewed, and results considered in the medical decision making process. Lower Extremity Course/Dx - Course Course Of Treatment: 73 year old male presents with cellulitis left leg the past couple days. He states that he has a hematoma on left thigh for the past week. He was seen at urgent care on Tuesday had an negative ultrasound for DVT. He was started on Bactrim. Has taken 2 days worth of Bactrim. He states the redness has not spread. He's noticed more swelling into his legs. has swelling that is equal in both legs. He is having a history of CHF. He states he's been increasing his Lasix on his own. He states he is not able to keep his legs elevated due to pain. On exam has edema noted to bilateral legs. Has some erythema over the hematoma and left longoria. Appears to have peripheral vascular disease in addition. Some warmth to the area. Vitals are stable. wbc normal. We will switch patient to clindamycin. Explained though cellulitis does not appears worst but probably having inc pain due to the edema. Total needs to elevate and use his compression socks. Told to follow- up with primary for wound check. Patient understands and agrees with plan. - Diagnoses Differential Diagnosis/HQI/PQRI: Positive: Cellulitis, Contusion, Infection Provider Diagnoses: Cellulitis Discharge ED - Sign-Out/Discharge Documenting (check all that apply): Patient Departure Patient Received Moderate/Deep Sedation with Procedure: No - Discharge Plan Condition: Good Disposition: HOME Prescriptions: Clindamycin Cap(NF) [Clindamycin Cap 300 mg Cap(NF)] 300 mg PO TID #29 cap Patient Education Materials: Cellulitis (ED) Referrals: Santy ANDRADEP,Elin [Primary Care Provider] - Additional Instructions: take clindamycin three times a day for 10 days stop bactrim elevate legs use compressions socks on area follow up with primary within 5 days Return to ED if develop any new or worsening symptoms - Billing Disposition and Condition Condition: GOOD Disposition: Home - Attestation Statements Provider Attestation: I was available for consultation for this patient. I did not evaluate the patient or participate in any medical decision making or disposition decisions unless I am specifically named in the chart as having consulted on the patient. If I have consulted on the patient, please see my own ED note on the patient encounter. Nasreen Kirkland MD
[2019-03-19] MEDS ORDERED: Furosemide TAB* 40 MG PO ONE (00:07)
[2019-03-19 00:52] VITALS: BP 99/53
== END 2019-03-19 00:51 | disposition home or self-care (01) ==
LOC: ED 19:48
DX: L03.116 Cellulitis of left lower limb (principal); E11.9 Type 2 diabetes mellitus without complications; I11.0 Hypertensive heart disease with heart failure; I50.9 Heart failure, unspecified; J44.9 Chronic obstructive pulmonary disease, unspecified; K21.9 Gastro-esophageal reflux disease without esophagitis; N40.0 Benign prostatic hyperplasia without lower urinary tract symptoms; F17.210 Nicotine dependence, cigarettes, uncomplicated; Z95.5 Presence of coronary angioplasty implant and graft; Z95.1 Presence of aortocoronary bypass graft; Z88.5 Allergy status to narcotic agent; Z88.0 Allergy status to penicillin; Z91.040 Latex allergy status; Z79.84 Long term (current) use of oral hypoglycemic drugs; Z79.899 Other long term (current) drug therapy
CPT/HCPCS: 36415; 80053; 83605; 83880; 85025; 86140; 87040; 99284; A9270-GY